=== PATIENT | male | born 1965 | race Caucasian/White ===

== ENCOUNTER 2024-07-28 13:13 | Inpatient (IN) ==
--- NOTE | 2024-07-28 14:03 | Emergency Department Note ---
HPI - URI/Sore Throat General Chief Complaint: Upper Respiratory Infection Stated Complaint: cold Time Seen by Provider: 07/28/24 13:20 Source: patient and family Limitations: no limitations History of Present Illness HPI Narrative: 58-year-old male presents to ER with complaint of generalized bodyaches, fever, cough, shortness of breath, and fatigue x 2 days. MD elicited complaint: Reports fever, cough and nasal congestion Pertinent past history: Reports pneumonia, sinusitis and seasonal allergies Onset (ago): day(s) (2) Consistency: Reports constant Severity: moderate Description of mucous: Reports yellow and green Able to tolerate fluids by mouth: Yes Exacerbating factors: Reports exertion, speaking, changing head position, supine positioning and leaning forward Relieving factors: Reports nothing Context: Reports sick contacts Associated symptoms: Reports fever, chills, myalgias, headache, nasal congestion, cough and nausea Treatments prior to arrival: Reports aspirin Related Data Allergies Allergy/AdvReac Type Severity Reaction Status Date / Time No Known Drug Allergies Allergy Verified 07/28/24 13:23 Review of Systems Status of ROS 10 or more systems reviewed and unremark able except as noted in history and below Constitutional Reports: fever, chills and fatigue; Denies: change in weight, malaise, night sweats or change in sleep pattern Eyes Denies: change in vision, blurry vision, blind spots, light sensitivity, eye discomfort, eye discharge, dry eyes, increased production of tears, floaters, seeing flashes or decreased night vision Ears, nose, mouth, and throat Reports: nasal congestion; Denies: throat pain, neck pain, throat swelling, difficulty swallowing, hoarseness, mouth pain, swelling of lips/tongue, dry mouth, bad breath, ear pain, ear discharge, change in hearing, tinnitus, vertigo, nasal discharge, nose bleeds or post nasal drip Cardiovascular Reports: shortness of breath with exertion and shortness of breath when lying down; Denies: chest pain, palpitations, edema, swelling of feet/ankles, lightheadedness, leg pain with exertion or bluish discoloration of hands/feet Respiratory Reports: shortness of breath, cough, wheezing and change in phlegm color; Denies: stridor, pain on inspiration, coughing up blood or chest congestion Gastrointestinal Reports: nausea; Denies: abdominal pain, vomiting, coffee grounds in vomit, heartburn, diarrhea, constipation, bloating, belching, excessive passing of gas, difficulty swallowing, feeling full early, change in bowel habits, painful bowel movements, rectal pain, rectal swelling, rectal itching, change in stool character, blood in stool, mucus in stool, white/light colored stool or fatty stool Genitourinary Denies: painful urination, urinary frequency, urinary urgency, blood in urine, genital pain, genital lesion, penile discharge, testicular pain, testicular mass, scrotal swelling, difficulty urinating, nighttime urination, change in urine stream, decreased urine ouput, difficulty starting urination, u rinary hesitancy, urinary dribbling, difficulty with ejactulations, painful ejaculations, blood in semen, change in libido or difficulty impregnating Musculoskeletal Reports: other (Generalized body aches); Denies: back pain, neck pain, extremity pain, extremity swelling, joint pain, limited range of motion, joint swelling, muscle cramps, muscle weakness or loss of height Integumentary/Breast Denies: rash, itching, redness, skin pain, skin tenderness, skin swelling, sores, new lesion, changing lesion, non-healing lesion, changes in skin color, jaundice, stretch sierra, acne, nail changes, change in hair, breast pain, breast swelling, nipple discharge, breast mass, breast skin changes or change in breast shape Neurological Denies: headache, numbness in extremities, weakness in extremities, lack of coordination, dizziness, vertigo, confusion, behavioral changes, slurred speech, difficulty communicating thoughts, seizure-like activity or involuntary movements Psychiatric Denies: anxiety, mood swings, panic attacks, change in sleep pattern, hopelessness, loss of interest, irritability, paranoia, memory loss, difficulty concentrating, visual hallucinations, auditory hallucinations, tactile hallucinations, suicidal ideation or homicidal ideation Endocrine Reports: fatigue; Denies: excessive urination, excessive thirst, cold intolerance, excessive sweating, flushing, heat intolerance, deepening of the voice, change in body appearance or change in libido Hematologic/Lymphatic Denies: easy bruising, easy bleeding or enlarged lymph nodes Allergic/Immunologic Reports: wheezing; Denies: hives, throat swelling, tongue swelling, facial swelling, itchy eyes, seasonal allergies or food intolerance [facility] Medical History (Updated 07/28/24 @ 13:32 by Madyson Aburto RN) HTN (hypertension) Social History Smoking status: never smoker Exam Constitutional: normal general appearance, distress noted (moderate), average body habitus, no limitations and alert Vital Signs - 24 hr 07/28/24 13:16 07/28/24 14:00 07/28/24 14:15 Temperature 98.4 F Pulse Rate 115 H 95 H Respiratory Rate 20 Blood Pressure 129/83 132/78 Pulse Oximetry 87 L 91 L 91 L Oxygen Delivery Me thod Room Air Nasal Cannula Oxygen Flow Rate 2 07/28/24 14:30 07/28/24 15:00 Temperature Pulse Rate 88 89 Respiratory Rate Blood Pressure 130/72 126/76 Pulse Oximetry 90 L 91 L Oxygen Delivery Me thod Nasal Cannula Nasal Cannula Oxygen Flow Rate 2 2 HENMT: normocephalic, head/scalp atraumatic, hearing grossly normal bilaterally, external ears normal, EACs normal, nasal mucous membranes normal, external nose normal, oral mucous membranes normal, oropharynx normal, dentition normal and gingiva normal Eyes: PERRL, EOMs intact bilaterally, conjunctivae normal, no scleral icterus, no papilledema, normal visual alfredo by confrontation, alignment normal, periorbital findings normal and no nystagmus Neck/C-Spine: visual inspection normal, trachea midline, cervical spine nontender, cervical full ROM noted, supple, no meningeal signs and thyroid normal Lymph: no lymphadenopathy noted and no lymphedema noted Chest: inspection of chest normal, palpation of chest normal, inspection of b reast(s) abnormal and palpation of breast(s) abnormal Respiratory: breath sounds equal bilaterally, normal respiratory effort, auscultation abnormal (diminished breath sound) (Diminished in lower lobes), wheezing noted (expiratory wheezes), no rales, no retractions and no use of accessory muscles Cardiovascular: normal heart rate noted, regular rhythm noted, no gallop, no rub, no murmur, no JVD, no clicks, peripheral pulses 2+ throughout, no bruits noted and no additional abnormal heart sounds Gastrointestinal: abdomen normal to inspection, abdomen soft to palpation, nontender to palpation, nondistended, normoactive bowel sounds, no hepatosplenomegaly, no masses, no pulsatile mass, no ascites, no hernia and normal rectal exam (deferred) Genitourinary: no CVA tenderness, bladder normal to palpation, penis abnormal (deferred), uncircumcised, testes abnormal, meatus abnormal (deferred), scrotum abnormal (deferred) and inguinal lymphadenopathy noted Back/Pelvis: spine normal to inspection, no thoracic spine tenderness, no lumbar spine tenderness, thoracic spine ROM normal, lumbar spine ROM normal and no paraspinal muscle tenderness noted Extremities: normal to inspection, normal to palpation, no tenderness, full ROM, no joint enlargement and no deformity Generalized body aches and pain on movement and range of motion. 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, no movement abnormality noted, no focal motor deficit noted, no sensory deficits noted, gait normal, speech normal, coordination normal, no pronator drift noted, no fasciculations noted and GCS normal Psychiatry: Mental Status Exam documented within this Exam's Psych section mental status grossly normal, oriented x3, thought process normal, cooperative, affect normal, psychomotor activity normal and memory normal Feel stressed/tense/nervous/anxious/difficulty sleeping: to some extent Life stressor details: Current medical condition Skin: skin color normal, no rash, no lesions, no ecchymosis noted, no wounds, no lacerations, skin turgor normal, no jaundice, no petechiae, no mottling, nails normal and no alopecia Course Course Hospital Course: 58-year-old male who presented to ER with complaint of generalized bodyaches, fever, cough, fatigue, nausea, runny nose has been evaluated by physical exam, CBC, CMP, plain film chest x-ray, swabs for COVID and flu, and magnesium results as noted in charting. Patient has been found to have hypoalbuminemia,-kalemia, leukocytosis, and bilateral pneumonia. Patient will be admitted to the Med/surg floor for IV antibiotics, and replacement of his electrolytes. Patient expected stay equal to or greater than 2 midnights with disposition home. Patient is agreeable treatment plan at this time. Vital Signs Vital signs: Vital Signs Temperature 98.4 F 07/28/24 13:16 Pulse Rate 115 H 07/28/24 13:16 Respiratory Rate 20 07/28/24 13:16 Blood Pressure 129/83 07/28/24 13:16 Pulse Oximetry 87 L 07/28/24 13:16 Oxygen Delivery Method Room Air 07/28/24 13:16 Temperature 98.4 F 07/28/24 13:16 Pulse Rate 89 07/28/24 15:00 Respiratory Rate 20 07/28/24 13:16 Blood Pressure 126/76 07/28/24 15:00 Pulse Oximetry 91 L 07/28/24 15:00 Oxygen Delivery Method Nasal Cannula 07/28/24 15:00 Oxygen Flow Rate 2 07/28/24 15:00 MDM - URI/Sore Throat MDM Narrative Medical Decision Making Narrative: Medical Decision Making this patient involved physical exam, CBC, CMP,/, magnesium, and plain film chest x-ray. Differential Diagnosis Upper Respiratory Differential Diagnosis: upper respiratory infection, viral infection, bronchitis, influenza, pharyngitis and other (Pneumonia) Lab Data Attestation: I reviewed the patient's lab results. Labs: Lab Results 07/28/24 Range/Units 14:10 WBC 15.9 H (3.7-9.6) K/uL RBC 4.9 (4.40-5.80) M/uL Hgb 14.5 (14.0-17.4) gm/dL Hct 43.3 (41.3-50.1) % MCV 88.0 (81.9-96.5) fl MCH 29.5 (27.6-33.7) pg MCHC 33.5 (33.0-35.7) g/dl RDW 14.0 (11.0-14.8) % Plt Count 422 H (142-355) K/uL MPV 7.6 (6.0-10.4) fl Gran % 89.7 H (49.1-73.1) % Lymph % (Auto) 3.7 L (17.6-39.05) % [place] % (Auto) 5.9 (4.5-10.7) % Eos % (Auto) 0.2 (0.0-4.0) % Baso % (Auto) 0.5 (0.0-1.3) Lymph # (Auto) 0.6 L (0.8-2.9) [place] # (Auto) 0.9 H (0.2-0.8) Eos # (Auto) 0.0 (0.0-0.3) Baso # (Auto) 0.1 (0.0-0.1) Absolute Gran (auto) 14.2 H (2.0-6.2) Sodium 137 (136-145) mmol/L Potassium 3.4 L (3.6-5.2) mmol/L Chloride 96.0 L (98-107) mmol/L Carbon Dioxide 29 (21-32) mmol/L Anion Gap 12.0 (4-14) mEq/L BUN 19 H (7-18) mg/dL Creatinine 1.0 (0.6-1.3) mg/dL Estimated GFR 87.2 (>59.9) Glucose 118 H (70-110) mg/dL Calcium 8.9 (8.5-10.1) mg/dL Total Bilirubin 0.81 (0.0-1.0) mg/dL AST 44 H (15-37) U/L ALT 30 (30-65) U/L Alkaline Phosphatase 121 (50-136) U/L Total Protein 7.8 (6.4-8.2) g/dL Albumin 2.2 L (3.4-5.0) g/dL COVID-19 ([facility]PH[facility]) Not detected (Not Detectd) Influenza Type A Ag Negative (Negative) Influenza Type B Ag Negative (Negative) Imaging Data Attestation imaging: I have reviewed the pertinent imaging results. Radiologist Impression: EXAM: XR CHEST 1V HISTORY: COUGHCOUGH; CBN COMPARISON: January 27, 2021 FINDINGS: The trachea is midline. The cardiac silhouette is mildly enlarged. Patchy infiltrate is noted at both lower lung zones more on right side without effusion. The bony thorax is unremarkable. IMPRESSION: Bilateral lower lobe bronchopneumonia. THIS IS AN ELECTRONICALLY VERIFIED FINAL REPORT 07/28/2024 2:22 PM - Electronically signed by Annie Robb MD Discharge Plan Discharge Patient Disposition: Admitted As Inpatient Condition: Stable Clinical Impression: Bronchopneumonia, Upper respiratory infection, Leukocytosis, Hypoalbuminemia, Acute hypokalemia Time of Disposition: 15:00
[2024-07-28] MEDS: IPRATROPIUM/ALBUTEROL SULFATE 3 ML AMPUL.NEB INH ONE (14:14)
[2024-07-28 14:20] LABS: Basophils #(Absolute) Auto 0.1 (0.0-0.1); Basophils%(Percent) Auto 0.5 (0.0-1.3); Eosinophils%(Percent) Auto 0.2 % (0.0-4.0); Granulocytes % - Auto 89.7 % (49.1-73.1); Granulocytes#(Absolute)- Auto 14.2 (2.0-6.2); Hematocrit 43.3 % (41.3-50.1); Monocytes #(Absolute)- Auto 0.9 (0.2-0.8); Monocytes %(Percent)- Auto 5.9 % (4.5-10.7); Platelet Count 422 K/uL (142-355); White Blood Count 15.9 K/uL (3.7-9.6)
[2024-07-28 14:37] LABS: Potassium 3.4 mmol/L (3.6-5.2)
[2024-07-28] MEDS ORDERED: bisacodyL 10 MG SUPP.RECT PR PRN (17:53)
[2024-07-28] MEDS ORDERED: ACETAMINOPHEN 1000 MG/100 ML 1,000 MG/100 ML IV.SOLN IV PRN (17:53)
[2024-07-28] MEDS ORDERED: MORPHINE SULFATE 4 MG/ML CARTRIDGE IV PRN (17:53)
[2024-07-28] MEDS ORDERED: ONDANSETRON HCL/PF 4 MG/2 ML VIAL INJ PRN (17:53)
[2024-07-28] MEDS ORDERED: KETOROLAC 30 MG/ML INJ VIAL IVP PRN (17:53)
[2024-07-28] MEDS ORDERED: AZITHROMYCIN 500 MG VIAL ONE (17:55)
[2024-07-28] MEDS ORDERED: 0.9 % SODIUM CHLORIDE 250 ML IV ONE (17:55)
[2024-07-28] MEDS: AZITHROMYCIN 500 MG 500 MG in 0.9 % SODIUM CHLORIDE 250 ML IV ONE (18:02)
[2024-07-28] MEDS: IPRATROPIUM/ALBUTEROL SULFATE 3 ML AMPUL.NEB INH SCH (20:14)
[2024-07-28] MEDS: CEFTRIAXONE SODIUM 1 GM in 0.9 % SODIUM CHLORIDE MB+ 50 ML IV SCH (21:06)
[2024-07-29 05:14] LABS: Basophils%(Percent) Auto 0.1 (0.0-1.3); Granulocytes#(Absolute)- Auto 13.1 (2.0-6.2); Hematocrit 41.6 % (41.3-50.1); Mean Corpuscular Volume 87.7 fl (81.9-96.5); Monocytes #(Absolute)- Auto 0.2 (0.2-0.8); Monocytes %(Percent)- Auto 1.4 % (4.5-10.7); Platelet Count 423 K/uL (142-355); White Blood Count 13.7 K/uL (3.7-9.6)
[2024-07-29] MEDS: dexAMETHasone 4 MG TABLET PO SCH (06:16)
[2024-07-29] MEDS: ENOXAPARIN SODIUM 40 MG/0.4 ML SYRINGE SUBQ SCH (13:18)
[2024-07-29] MEDS: ALBUMIN HUMAN 25% 100 ML IV SCH (13:18)
[2024-07-29] MEDS: CEFTRIAXONE SODIUM 1 GM in 0.9 % SODIUM CHLORIDE MB+ 50 ML IV SCH (14:51)
[2024-07-29] MEDS: METHYLPREDNISOLONE SOD SUCC/PF 40 MG/ML VIAL INJ SCH (14:51)
--- NOTE | 2024-07-29 15:22 | History & Physical Report ---
H&P: HPI History of Present Illness Chief complaint: broncopneumonia,leukocytosis,hypoalbumenia,hypokal Narrative: 58-year-old male presents to ER with complaint of generalized bodyaches, fever, cough, shortness of breath, and fatigue x 2 days. MD elicited complaint: Reports fever, cough and nasal congestion Pertinent past history: Reports pneumonia, sinusitis and seasonal allergies Review of Systems Status of ROS 10 or more systems reviewed and unremark able except as noted in history and below Constitutional Reports: fever, chills and fatigue; Denies: change in weight, malaise, night sweats or change in sleep pattern Eyes Denies: change in vision, blurry vision, blind spots, light sensitivity, eye discomfort, eye discharge, dry eyes, increased production of tears, floaters, seeing flashes or decreased night vision Ears, nose, mouth, and throat Reports: nasal congestion; Denies: throat pain, neck pain, throat swelling, difficulty swallowing, hoarseness, mouth pain, swelling of lips/tongue, dry mouth, bad breath, ear pain, ear discharge, change in hearing, tinnitus, vertigo, nasal discharge, nose bleeds or post nasal drip Cardiovascular Reports: shortness of breath with exertion and shortness of breath when lying down; Denies: chest pain, palpitations, edema, swelling of feet/ankles, lightheadedness, leg pain with exertion or bluish discoloration of hands/feet Respiratory Reports: shortness of breath, cough, wheezing and change in phlegm color; Denies: stridor, pain on inspiration, coughing up blood or chest congestion Gastrointestinal Reports: nausea; Denies: abdominal pain, vomiting, coffee grounds in vomit, heartburn, diarrhea, constipation, bloating, belching, excessive passing of gas, difficulty swallowing, feeling full early, change in bowel habits, painful bowel movements, rectal pain, rectal swelling, rectal itching, change in stool character, blood in stool, mucus in stool, white/light colored stool or fatty stool Genitourinary Denies: painful urination, urinary frequency, urinary urgency, blood in urine, genital pain, genital lesion, penile discharge, testicular pain, testicular mass, scrotal swelling, difficulty urinating, nighttime urination, change in urine stream, decreased urine ouput, difficulty starting urination, urinary hesitancy, urinary dribbling, difficulty with ejactulations, painful ejaculations, blood in semen, change in libido or difficulty impregnating Musculoskeletal Reports: other (Generalized body aches); Denies: back pain, neck pain, extremity pain, extremity swelling, joint pain, limited range of motion, joint swelling, muscle cramps, muscle weakness or loss of height Integumentary/Breast Denies: rash, itching, redness, skin pain, skin tenderness, skin swelling, sores, new lesion, changing lesion, non-healing lesion, changes in skin color, jaundice, stretch sierra, acne, nail changes, change in hair, breast pain, breast swelling, nipple discharge, breast mass, breast skin changes or change in breast shape Neurological Denies: headache, numbness in extremities, weakness in extremities, lack of coordination, dizziness, vertigo, confusion, behavioral changes, slurred speech, difficulty communicating thoughts, seizure-like activity or involuntary movements Psychiatric Denies: anxiety, mood swings, panic attacks, change in sleep pattern, hopelessness, loss of interest, irritability, paranoia, memory loss, difficulty concentrating, visual hallucinations, auditory hallucinations, tactile hallucinations, suicidal ideation or homicidal ideation Endocrine Reports: fatigue; Denies: excessive urination, excessive thirst, cold intolerance, excessive sweating, flushing, heat intolerance, deepening of the voice, change in body appearance or change in libido Hematologic/Lymphatic Denies: easy bruising, easy bleeding or enlarged lymph nodes Allergic/Immunologic Reports: wheezing; Denies: hives, throat swelling, tongue swelling, facial swelling, itchy eyes, seasonal allergies or food intolerance [facility] Medical History (Updated 07/29/24 @ 15:23 by Danika Hanks DO) GERD (gastroesophageal reflux disease) Hypoalbuminemia Asthma HTN (hypertension) Social History Smoking status: never smoker Problems where you live: no known problems Highest level of school completed/degree received: high school Feel stressed/tense/nervous/anxious/difficulty sleeping: to some extent Life stressor details: Current medical condition Meds Home Medications and Allergies Allergies Allergy/AdvReac Type Severity Reaction Status Date / Time No Known Drug Allergies Allergy Verified 07/28/24 13:23 Exam Constitutional: abnormal general appearance (disheveled), distress noted (moderate), average body habitus, no limitations and alert Vital Signs - 24 hr 07/28/24 15:30 07/28/24 16:00 07/28/24 16:30 Temperature Pulse Rate 87 93 H 88 Pulse Rate [Bilate ral] Respiratory Rate Blood Pressure 122/73 125/75 118/75 Blood Pressure [Ri ght Radial Artery] Pulse Oximetry Oxygen Delivery Me thod Oxygen Flow Rate Fraction of Inspir ed Oxygen 07/28/24 17:30 07/28/24 18:00 07/28/24 18:15 Temperature Pulse Rate 83 85 Pulse Rate [Bilate ral] Respiratory Rate Blood Pressure 125/73 120/70 Blood Pressure [Ri ght Radial Artery] Pulse Oximetry 93 L Oxygen Delivery Me thod Nasal Cannula Oxygen Flow Rate 3 Fraction of Inspir ed Oxygen 07/28/24 18:30 07/28/24 20:00 07/28/24 20:00 Temperature 98.2 F 98.2 F Pulse Rate 85 Pulse Rate [Bilate ral] 83 83 Respiratory Rate 16 19 19 Blood Pressure 120/70 Blood Pressure [Ri ght Radial Artery] 120/75 120/75 Pulse Oximetry 93 L 91 L 91 L Oxygen Delivery Me thod Nasal Cannula Nasal Cannula Oxygen Flow Rate Fraction of Inspir ed Oxygen 07/28/24 20:00 07/28/24 20:14 07/28/24 20:14 Temperature Pulse Rate Pulse Rate [Bilate ral] Respiratory Rate Blood Pressure Blood Pressure [Ri ght Radial Artery] Pulse Oximetry 90 L 90 L Oxygen Delivery Me thod Nasal Cannula Nasal Cannula Oxygen Flow Rate 2 3 Fraction of Inspir ed Oxygen 32 07/28/24 23:50 07/29/24 00:18 07/29/24 04:00 Temperature 98.1 F 97.7 F Pulse Rate Pulse Rate [Bilate ral] 84 81 Respiratory Rate 17 18 Blood Pressure Blood Pressure [Ri ght Radial Artery] 120/75 138/84 Pulse Oximetry 92 L 91 L 90 L Oxygen Delivery Me thod Nasal Cannula Nasal Cannula Oxygen Flow Rate Fraction of Inspir ed Oxygen 07/29/24 04:32 07/29/24 08:00 07/29/24 08:22 Temperature 97.6 F Pulse Rate Pulse Rate [Bilate ral] 85 Respiratory Rate 19 Blood Pressure Blood Pressure [Ri ght Radial Artery] 117/75 Pulse Oximetry 91 L 95 94 L Oxygen Delivery Me thod Room Air Oxygen Flow Rate Fraction of Inspir ed Oxygen 07/29/24 08:22 07/29/24 12:00 Temperature 97.9 F Pulse Rate Pulse Rate [Bilate ral] 100 H Respiratory Rate 20 Blood Pressure Blood Pressure [Ri ght Radial Artery] 124/73 Pulse Oximetry 94 L 92 L Oxygen Delivery Me thod Nasal Cannula Nasal Cannula Oxygen Flow Rate 2 3 Fraction of Inspir ed Oxygen 28 HENMT: normocephalic, head/scalp atraumatic, hearing grossly normal bilaterally, external ears normal, EACs normal, nasal mucous membranes normal, external nose normal, oral mucous membranes abnormal (dry), oropharynx abnormal, dentition normal and gingiva normal Eyes: PERRL, EOMs intact bilaterally, conjunctivae normal, no scleral icterus, papilledema noted, normal visual alfredo by confrontation, alignment normal, periorbital findings normal, visual acuity normal and no nystagmus Neck/C-Spine: visual inspection normal, trachea midline, cervical spine nontender, cervical full ROM noted, supple, no meningeal signs and thyroid normal Lymph: no lymphadenopathy noted and no lymphedema noted Chest: inspection of chest normal, palpation of chest normal, inspection of breast(s) abnormal and palpation of breast(s) abnormal Respiratory: breath sounds equal bilaterally, normal respiratory effort, auscultation abnormal (diminished breath sound) (Diminished in lower lobes), wheezing noted (expiratory wheezes), no rales, no retractions and no use of accessory muscles Cardiovascular: normal heart rate noted, regular rhythm noted, no gallop, no rub, no murmur, no JVD, no clicks, peripheral pulses 2+ throughout, no bruits noted and no additional abnormal heart sounds Gastrointestinal: abdomen normal to inspection, abdomen soft to palpation, nontender to palpation, nontender to percussion, nondistended, normoactive bowel sounds, hepatosplenomegaly noted, no masses, no pulsatile mass, no ascites, no hernia and normal rectal exam (deferred) Genitourinary: no CVA tenderness, bladder normal to palpation, external appearance normal, penis normal (deferred), circumcised, testes normal, meatus normal (deferred), scrotum normal (deferred) and no inguinal lymphadenopathy Back/Pelvis: spine normal to inspection, no thoracic spine tenderness, no lumbar spine tenderness, thoracic spine ROM normal, lumbar spine ROM normal and no paraspinal muscle tenderness noted Extremities: normal to inspection, normal to palpation, no tenderness, full ROM, no joint enlargement and no deformity Generalized body aches and pain on movement and range of motion. 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, no movement abnormality noted, no focal motor deficit noted, no sensory deficits noted, gait normal, speech normal, coordination normal, no pronator drift noted, no fasciculations noted and GCS normal Psychiatry: Mental Status Exam documented within this Exam's Psych section mental status grossly normal, oriented x3, thought process normal, cooperative, affect abnormality noted (depressed) and (flat), psychomotor activity normal and memory normal Feel stressed/tense/nervous/anxious/difficulty sleeping: decl ine to answer Skin: skin color abnormal (dark circles around eyes) Reports (pale), no rash, no lesions, no ecchymosis noted, no wounds, no lacerations, skin turgor abnormal Reports (tenting), no jaundice, no petechiae, no mottling, nails normal and no alopecia Assessment and Plan Assessment and Plan (1) Pneumonia of both lungs: Qualifiers: Lung location: unspecified part of lung Pneumonia type: due to unspecified organism Qualified Code(s): J18.9 - Pneumonia, unspecified organism Code(s): J18.9 - Pneumonia, unspecified organism (2) Asthma: Qualifiers: Asthma complication type: with acute exacerbation Asthma persistence: unspecified Asthma severity: moderate Qualified Code(s): J45.901 - Unspecified asthma with (acute) exacerbation Code(s): J45.909 - Unspecified asthma, uncomplicated (3) Respiratory acidosis: Code(s): E87.29 - Other acidosis (4) Dehydrated hereditary stomatocytosis: Code(s): D58.8 - Other specified hereditary hemolytic anemias (5) Hypokalemia: Code(s): E87.6 - Hypokalemia (6) Hypoalbuminemia: Code(s): E88.09 - Other disorders of plasma-protein metabolism, not elsewhere classified (7) GERD (gastroesophageal reflux disease): Qualifiers: Esophagitis presence: without esophagitis Qualified Code(s): K21.9 - Gastro-esophageal reflux disease without esophagitis Code(s): K21.9 - Gastro-esophageal reflux disease without esophagitis Plan cautious hydration IV and Oral daily weights cardiac and oxygen monitoring continuous duo nebs every4 hours Pulmicort 1 vial every 12 hours Rocephin 1 gram IV every 12 hours Zithromax 500 mg IV every day Solumedrol 40 mg [id number] IV Protonix 40 mg po daily Lovenox SQ 40 mg daily Results Labs Labs: CBC WBC 13.7 K/uL (3.7-9.6) H 07/29/24 04:27 RBC 4.7 M/uL (4.40-5.80) 07/29/24 04:27 Hgb 14.0 gm/dL (14.0-17.4) 07/29/24 04:27 Hct 41.6 % (41.3-50.1) 07/29/24 04:27 MCV 87.7 fl (81.9-96.5) 07/29/24 04:27 MCH 29.4 pg (27.6-33.7) 07/29/24 04:27 MCHC 33.6 g/dl (33.0-35.7) 07/29/24 04:27 RDW 13.9 % (11.0-14.8) 07/29/24 04:27 Plt Count 423 K/uL (142-355) H 07/29/24 04:27 MPV 7.8 fl (6.0-10.4) 07/29/24 04:27 Gran % 96.0 % (49.1-73.1) H 07/29/24 04:27 Lymph % (Auto) 2.5 % (17.6-39.05) L 07/29/24 04:27 [place] % (Auto) 1.4 % (4.5-10.7) L 07/29/24 04:27 Eos % (Auto) 0.0 % (0.0-4.0) 07/29/24 04:27 Baso % (Auto) 0.1 (0.0-1.3) 07/29/24 04:27 Lymph # (Auto) 0.3 (0.8-2.9) L 07/29/24 04:27 [place] # (Auto) 0.2 (0.2-0.8) 07/29/24 04:27 Eos # (Auto) 0.0 (0.0-0.3) 07/29/24 04:27 Baso # (Auto) 0.0 (0.0-0.1) 07/29/24 04:27 Absolute Gran (auto) 13.1 (2.0-6.2) H 07/29/24 04:27 BMP Sodium 136 mmol/L (136-145) 07/29/24 04:27 Potassium 4.0 mmol/L (3.6-5.2) 07/29/24 04:27 Chloride 98.0 mmol/L (98-107) 07/29/24 04:27 Carbon Dioxide 28 mmol/L (21-32) 07/29/24 04:27 Anion Gap 10.0 mEq/L (4-14) 07/29/24 04:27 BUN 20 mg/dL (7-18) H 07/29/24 04:27 Creatinine 0.8 mg/dL (0.6-1.3) 07/29/24 04:27 Estimated GFR 102.6 (>59.9) 07/29/24 04:27 Glucose 158 mg/dL (70-110) H 07/29/24 04:27 Calcium 8.8 mg/dL (8.5-10.1) 07/29/24 04:27 Magnesium 2.1 mg/dL (1.8-2.4) 07/29/24 04:27 Total Bilirubin 0.42 mg/dL (0.0-1.0) 07/29/24 04:27 AST 49 U/L (15-37) H 07/29/24 04:27 ALT 37 U/L (30-65) 07/29/24 04:27 Alkaline Phosphatase 123 U/L (50-136) 07/29/24 04:27 Total Protein 7.6 g/dL (6.4-8.2) 07/29/24 04:27 Albumin 2.0 g/dL (3.4-5.0) L 07/29/24 04:27 Liver Function Total Bilirubin 0.42 mg/dL (0.0-1.0) 07/29/24 04:27 AST 49 U/L (15-37) H 07/29/24 04:27 ALT 37 U/L (30-65) 07/29/24 04:27 Alkaline Phosphatase 123 U/L (50-136) 07/29/24 04:27 Total Protein 7.6 g/dL (6.4-8.2) 07/29/24 04:27 Albumin 2.0 g/dL (3.4-5.0) L 07/29/24 04:27 ABG Attestation: I have reviewed the pertinent ABG results. Pulse Oximetry Attestation: I have reviewed the pertinent pulse oximetry results. ECG Attestation: I have reviewed the pertinent ECG results. Imaging Imaging ordered: Chest x-ray Radiologist's impression: XR CHEST 1V HISTORY: COUGHCOUGH; CBN COMPARISON: January 27, 2021 FINDINGS: The trachea is midline. The cardiac silhouette is mildly enlarged. Patchy infiltrate is noted at both lower lung zones more on right side without effusion. The bony thorax is unremarkable. IMPRESSION: Bilateral lower lobe bronchopneumonia.
[2024-07-29] MEDS: BUDESONIDE 0.5 MG/2 ML AMPUL.NEB INH SCH (15:40)
[2024-07-29] MEDS: 0.9 % SODIUM CHLORIDE 1000 ML 1,000 ML IV SCH (16:18)
[2024-07-29] MEDS: AZITHROMYCIN 500 MG 500 MG in 0.9 % SODIUM CHLORIDE 250 ML IV SCH (17:33)
[2024-07-29] MEDS: PANTOPRAZOLE SODIUM 40 MG TABLET.DR PO SCH (20:57)
[2024-07-30 04:45] LABS: Basophils #(Absolute) Auto 0.1 (0.0-0.1); Basophils%(Percent) Auto 0.3 (0.0-1.3); Granulocytes#(Absolute)- Auto 15.8 (2.0-6.2); Hematocrit 37.5 % (41.3-50.1); Monocytes #(Absolute)- Auto 0.4 (0.2-0.8); Monocytes %(Percent)- Auto 2.2 % (4.5-10.7); Platelet Count 405 K/uL (142-355); White Blood Count 16.8 K/uL (3.7-9.6)
[2024-07-30 05:18] LABS: Potassium 3.3 mmol/L (3.6-5.2)
[2024-07-30] MEDS: POTASSIUM CHLORIDE 20 MEQ TAB.ER.PRT PO ONE (10:05)
[2024-07-30] MEDS: carvediloL 3.125 MG TABLET PO SCH (10:47)
--- NOTE | 2024-07-30 14:34 | Progress Note ---
Progress Note: Subjective Subjective Interval history: Patient is being tapered off O2, when oxygen is lowered his sats drop to 90-92%. He is currently on 2 liters of oxygen to maintain O2 saturation levels. WBC increased to 16.8, glucose of 197, BNP of 148.0, Albumin of 2.7, and TSH of 0.27. Breath sounds have improved and patient states he is feeling better today. Exam Exam: Patient sitting up eating with family member at bedside upon encounter for exam. Constitutional: normal general appearance, no apparent distress, average body habitus, no limitations and alert Vital Signs - 24 hr 07/29/24 12:00 07/29/24 16:00 07/29/24 19:23 Temperature 97.9 F 97.7 F 97.6 F Pulse Rate [Bilate ral] 100 H 91 H 92 H Respiratory Rate 20 20 23 Blood Pressure [Ri ght Radial Artery] 124/73 128/68 123/71 Pulse Oximetry 92 L 87 L 91 L Oxygen Delivery Me thod Nasal Cannula Nasal Cannula Nasal Cannula Oxygen Flow Rate 3 2 Fraction of Inspir ed Oxygen 07/29/24 21:00 07/29/24 21:00 07/29/24 23:45 Temperature 97.8 F Pulse Rate [Bilate ral] 95 H Respiratory Rate 21 Blood Pressure [Ri ght Radial Artery] 134/71 Pulse Oximetry 90 L 90 L 98 Oxygen Delivery Me thod Nasal Cannula Room Air Oxygen Flow Rate 2 Fraction of Inspir ed Oxygen 28 07/30/24 03:20 07/30/24 07:50 07/30/24 07:53 Temperature 98.7 F 97.8 F Pulse Rate [Bilate ral] 81 74 Respiratory Rate 20 20 Blood Pressure [Ri ght Radial Artery] 135/70 137/75 Pulse Oximetry 90 L 88 L 88 L Oxygen Delivery Me thod Nasal Cannula Nasal Cannula Oxygen Flow Rate 2 Fraction of Inspir ed Oxygen HENMT: normocephalic, head/scalp atraumatic, hearing grossly normal bilaterally, external ears normal, EACs normal, nasal mucous membranes normal, external nose normal, oral mucous membranes normal, oropharynx normal, dentition normal and gingiva normal Eyes: PERRL, EOMs intact bilaterally, conjunctivae normal, no scleral icterus, papilledema noted, normal visual alfredo by confrontation, alignment normal, periorbital findings normal, visual acuity normal and no nystagmus Neck/C-Spine: visual inspection normal, trachea midline, cervical spine nontender, cervical full ROM noted, supple, no meningeal signs and thyroid normal Lymph: no lymphadenopathy noted and no lymphedema noted Chest: inspection of chest normal and palpation of chest normal Respiratory: breath sounds equal bilaterally, normal respiratory effort, auscultation abnormal (diminished breath sound) (Diminished in lower lobes), no wheezes, no rales, no retractions and no use of accessory muscles Cardiovascular: normal heart rate noted, regular rhythm noted, no gallop, no rub, no murmur, no JVD, no clicks, peripheral pulses 2+ throughout, no bruits noted and no additional abnormal heart sounds Gastrointestinal: abdomen normal to inspection, abdomen soft to palpation, nontender to palpation, nontender to percussion, nondistended, normoactive bowel sounds, no masses, no pulsatile mass, no ascites and no hernia Genitourinary: no CVA tenderness, bladder normal to palpation and external appearance normal Back/Pelvis: spine normal to inspection, no thoracic spine tenderness, no lumbar spine tenderness, thoracic spine ROM normal, lumbar spine ROM normal and no paraspinal muscle tenderness noted Extremities: normal to inspection, normal to palpation, no tenderness, full ROM, no joint enlargement and no deformity Generalized body aches and pain on movement and range of motion. 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, no movement abnormality noted, no focal motor deficit noted, no sensory deficits noted, gait normal, speech normal, coor dination normal, no pronator drift noted, no fasciculations noted and GCS normal Psychiatry: Mental Status Exam documented within this Exam's Psych section mental status grossly normal, oriented x3, thought process normal, cooperative, affect normal, psychomotor activity normal and memory normal Skin: skin color abnormal (dark circles around eyes), no rash, no lesions, no ecchymosis noted, no wounds, no lacerations, skin turgor normal, no jaundice, no petechiae, no mottling, nails normal and no alopecia Progress Note: Objective Labs Labs: CBC WBC 16.8 K/uL (3.7-9.6) H 07/30/24 04:30 RBC 4.3 M/uL (4.40-5.80) L 07/30/24 04:30 Hgb 12.5 gm/dL (14.0-17.4) L 07/30/24 04:30 Hct 37.5 % (41.3-50.1) L 07/30/24 04:30 MCV 88.0 fl (81.9-96.5) 07/30/24 04:30 MCH 29.3 pg (27.6-33.7) 07/30/24 04:30 MCHC 33.3 g/dl (33.0-35.7) 07/30/24 04:30 RDW 13.8 % (11.0-14.8) 07/30/24 04:30 Plt Count 405 K/uL (142-355) H 07/30/24 04:30 MPV 7.7 fl (6.0-10.4) 07/30/24 04: Gran % 94.0 % (49.1-73.1) H 07/30/24 04:30 Lymph % (Auto) 3.5 % (17.6-39.05) L 07/30/24 04:30 [place] % (Auto) 2.2 % (4.5-10.7) L 07/30/24 04:30 Eos % (Auto) 0.0 % (0.0-4.0) 07/30/24 04:30 Baso % (Auto) 0.3 (0.0-1.3) 07/30/24 04:30 Lymph # (Auto) 0.6 (0.8-2.9) L 07/30/24 04:30 [place] # (Auto) 0.4 (0.2-0.8) 07/30/24 04:30 Eos # (Auto) 0.0 (0.0-0.3) 07/30/24 04:30 Baso # (Auto) 0.1 (0.0-0.1) 07/30/24 04:30 Absolute Gran (auto) 15.8 (2.0-6.2) H 07/30/24 04:30 BMP Sodium 139 mmol/L (136-145) 07/30/24 04:30 Potassium 3.3 mmol/L (3.6-5.2) L 07/30/24 04:30 Chloride 102.0 mmol/L (98-107) 07/30/24 04:30 Carbon Dioxide 27 mmol/L (21-32) 07/30/24 04:30 Anion Gap 10.0 mEq/L (4-14) 07/30/24 04:30 BUN 18 mg/dL (7-18) 07/30/24 04:30 Creatinine 0.9 mg/dL (0.6-1.3) 07/30/24 04:30 Estimated GFR 99.0 (>59.9) 07/30/24 04:30 Glucose 197 mg/dL (70-110) H 07/30/24 04:30 Calcium 8.7 mg/dL (8.5-10.1) 07/30/24 04:30 Phosphorus 2.9 mg/dL (2.5-4.9) 07/30/24 04:30 Magnesium 2.2 mg/dL (1.8-2.4) 07/30/24 04:30 Total Bilirubin 0.38 mg/dL (0.0-1.0) 07/30/24 04:30 AST 31 U/L (15-37) 07/30/24 04:30 ALT 26 U/L (30-65) L 07/30/24 04:30 Alkaline Phosphatase 104 U/L (50-136) 07/30/24 04:30 Total Protein 7.1 g/dL (6.4-8.2) 07/30/24 04:30 Albumin 2.7 g/dL (3.4-5.0) L 07/30/24 04:30 Liver Function Total Bilirubin 0.38 mg/dL (0.0-1.0) 07/30/24 04:30 AST 31 U/L (15-37) 07/30/24 04:30 ALT 26 U/L (30-65) L 07/30/24 04:30 Alkaline Phosphatase 104 U/L (50-136) 07/30/24 04:30 Total Protein 7.1 g/dL (6.4-8.2) 07/30/24 04:30 Albumin 2.7 g/dL (3.4-5.0) L 07/30/24 04:30 Progress Note: A&P Assessment and Plan (1) Pneumonia of both lungs: Qualifiers: Lung location: unspecified part of lung Pneumonia type: due to unspecified organism Qualified Code(s): J18.9 - Pneumonia, unspecified organism (2) Asthma: Qualifiers: Asthma complication type: with acute exacerbation Asthma persistence: unspecified Asthma severity: moderate Qualified Code(s): J45.901 - Unspecified asthma with (acute) exacerbation (3) Respiratory acidosis: (4) Dehydrated hereditary stomatocytosis: (5) Hypokalemia: (6) Hypoalbuminemia: (7) GERD (gastroesophageal reflux disease): Qualifiers: Esophagitis presence: without esophagitis Qualified Code(s): K21.9 - Gastro-esophageal reflux disease without esophagitis Plan tapering down O2 liters to ween off Oxygen. Continue to monitor and treat. Fall Risk Details Cage Fall Scale Risk Level: Low Fall Risk Current Medications: Current Medications Albuterol Sulfate (Ipratropium/Albuterol Sulfate 3 Ml Ampul.Neb) 3 ml INH RQ4 [facility] Last Admin: 07/30/24 07:53 Dose: 3 ml Bisacodyl (Bisacodyl 10 Mg Supp.Rect) 10 mg HI DAILY PRN PRN Reason: Constipation Budesonide (Budesonide 0.5 Mg/2 Ml Ampul.Neb) 1 mg INH RBID [facility] Last Admin: 07/30/24 07:53 Dose: 1 mg Carvedilol (Carvedilol 3.125 Mg Tablet) 3.125 mg PO Q12H [facility] Enoxaparin Sodium (Enoxaparin Sodium 40 Mg/0.4 Ml Syringe) 40 mg SUBQ DAILY [facility] Last Admin: 07/30/24 09:17 Dose: 40 mg Gabapentin (Gabapentin 300 Mg Capsule) 300 mg PO DAILY [facility] Acetaminophen (Acetaminophen 1000 Mg/100 Ml) 1,000 mg in 100 mls @ 400 mls/hr IV Q6H PRN PRN Reason: Pain Azithromycin 500 mg/ Sodium (Chloride) 250 mls @ 250 mls/hr IV Q24H [facility] Stop: 07/31/24 18:59 Last Infusion: 07/29/24 19:53 Dose: Infused Ceftriaxone Sodium 1 gm/ (Sodium Chloride) 50 mls @ 100 mls/hr IV Q12H [facility] Last Infusion: 07/30/24 04:33 Dose: Infused Sodium Chloride (Sodium Chloride) 1,000 mls @ 100 mls/hr IV CONT [facility] Last Admin: 07/30/24 03:48 Dose: 100 mls/hr Ketorolac Tromethamine (Ketorolac 30 Mg/Ml Inj Vial) 15 mg IVP Q6H PRN PRN Reason: Moderate Pain SCALE 5-7 Stop: 08/02/24 17:52 Methylprednisolone Sodium Succinate (Methylprednisolone Sod Succ/Pf 40 Mg/Ml Vial) 40 mg INJ Q8H [facility] Last Admin: 07/30/24 07:40 Dose: 40 mg Morphine Sulfate (Morphine Sulfate 4 Mg/Ml Cartridge) 4 mg IV Q4H PRN PRN Reason: Severe Pain SCALE 8-10 Ondansetron HCl (Ondansetron Hcl/Pf 4 Mg/2 Ml Vial) 4 mg INJ Q6H PRN PRN Reason: Nausea And Vomiting Pantoprazole Sodium (Pantoprazole Sodium 40 Mg Tablet.Dr) 40 mg PO BID [facility] Last Admin: 07/30/24 09:17 Dose: 40 mg Time Spent With Patient Time: Total time spent is greater than 50% in coordination of care (as documented) at patient's floor/unit and/or counseling patient:
[2024-07-30] MEDS: GABAPENTIN 300 MG CAPSULE PO SCH (20:31)
[2024-07-31 04:58] LABS: Basophils%(Percent) Auto 0.1 (0.0-1.3); Granulocytes#(Absolute)- Auto 10.7 (2.0-6.2); Mean Corpuscular Volume 88.9 fl (81.9-96.5); Monocytes #(Absolute)- Auto 0.2 (0.2-0.8); Monocytes %(Percent)- Auto 2.1 % (4.5-10.7); Platelet Count 366 K/uL (142-355); White Blood Count 11.4 K/uL (3.7-9.6)
[2024-07-31 05:29] LABS: Potassium 4.8 mmol/L (3.6-5.2)
[2024-07-31] MEDS: METHYLPREDNISOLONE SOD SUCC/PF 40 MG/ML VIAL INJ SCH (15:40)
--- NOTE | 2024-07-31 16:02 | Progress Note ---
Progress Note: Subjective Subjective Interval history: Patient is being tapered off O2, when oxygen is lowered his sats drop to 90-92%. He is currently on 2 liters of oxygen to maintain O2 saturation levels. WBC increased to 16.8, glucose of 197, BNP of 148.0, Albumin of 2.7, and TSH of 0.27. Breath sounds have improved and patient states he is feeling better today. O2 Qualifier performed by Respiratory Therapy, as soon as patient stood to walk his HR elevated to 120 and O2 SAT went to 84% while on room air. O2 was reapplied at 1 Liter. Exam Exam: Patient in pearson's position upon entering room for exam. Constitutional: normal general appearance, no apparent distress, average body habitus, no limitations and alert Vital Signs - 24 hr 07/30/24 16:00 07/30/24 18:29 07/30/24 19:54 Temperature 97.9 F 97.9 F Pulse Rate Pulse Rate [Bilate ral] 55 L 69 Respiratory Rate 20 20 Blood Pressure Blood Pressure [Ri ght Radial Artery] 145/76 154/82 Pulse Oximetry 92 L 92 L 92 L Oxygen Delivery Me thod Nasal Cannula Nasal Cannula Oxygen Flow Rate 1 1 Fraction of Inspir ed Oxygen 07/30/24 19:54 07/30/24 20:00 07/31/24 00:00 Temperature 97.9 F 97.7 F Pulse Rate Pulse Rate [Bilate ral] 69 68 Respiratory Rate 20 20 Blood Pressure Blood Pressure [Ri ght Radial Artery] 154/82 157/87 Pulse Oximetry 92 L 92 L 91 L Oxygen Delivery Me thod Room Air Nasal Cannula Nasal Cannula Oxygen Flow Rate 1 1 1 Fraction of Inspir ed Oxygen 24 07/31/24 00:26 07/31/24 04:00 07/31/24 05:17 Temperature 97.9 F Pulse Rate Pulse Rate [Bilate ral] 65 Respiratory Rate 19 Blood Pressure Blood Pressure [Ri ght Radial Artery] 146/83 Pulse Oximetry 91 L 94 L 94 L Oxygen Delivery Me thod Nasal Cannula Oxygen Flow Rate 1 Fraction of Inspir ed Oxygen 07/31/24 08:00 07/31/24 08:02 07/31/24 08:03 Temperature 97.9 F Pulse Rate Pulse Rate [Bilate ral] 83 Respiratory Rate 19 Blood Pressure Blood Pressure [Ri ght Radial Artery] 141/71 Pulse Oximetry 90 L 91 L 91 L Oxygen Delivery Me thod Nasal Cannula Nasal Cannula Oxygen Flow Rate 2 2 Fraction of Inspir ed Oxygen 28 07/31/24 09:00 07/31/24 09:00 07/31/24 10:36 Temperature Pulse Rate 88 83 Pulse Rate [Bilate ral] Respiratory Rate Blood Pressure 141/71 Blood Pressure [Ri ght Radial Artery] Pulse Oximetry 93 L Oxygen Delivery Me thod Room Air Oxygen Flow Rate 1.5 Fraction of Inspir ed Oxygen 21 28 07/31/24 11:39 07/31/24 11:45 07/31/24 15:22 Temperature 98.3 F Pulse Rate Pulse Rate [Bilate ral] 78 Respiratory Rate 18 Blood Pressure Blood Pressure [Ri ght Radial Artery] 118/66 Pulse Oximetry 91 L 90 L 94 L Oxygen Delivery Me thod Nasal Cannula Oxygen Flow Rate 2 Fraction of Inspir ed Oxygen HENMT: normocephalic, head/scalp atraumatic, hearing grossly normal bilaterally, external ears normal, EACs normal, nasal mucous membranes normal, external nose normal, oral mucous membranes normal, oropharynx normal, dentition normal and gingiva normal Eyes: PERRL, EOMs intact bilaterally, conjunctivae normal, no scleral icterus, papilledema noted, normal visual alfredo by confrontation, alignment normal, periorbital findings normal, visual acuity normal and no nystagmus Neck/C-Spine: visual inspection normal, trachea midline, cervical spine nontender, cervical full ROM noted, supple, no meningeal signs and thyroid normal Lymph: no lymphadenopathy noted and no lymphedema noted Chest: inspection of chest normal, palpation of chest normal, inspection of breast(s) abnormal and palpation of breast(s) abnormal Respiratory: breath sounds equal bilaterally, normal respiratory effort, auscultation abnormal (diminished breath sound) (Diminished in lower lobes), wheezing noted (scattered wheezes) (Rt > Lt), no rales, no retractions and no use of accessory muscles Cardiovascular: normal heart rate noted, regular rhythm noted, no gallop, no rub, no murmur, no JVD, no clicks, peripheral pulses 2+ throughout, no bruits noted and no additional abnormal heart sounds Gastrointestinal: abdomen normal to inspection, abdomen soft to palpation, nontender to palpation, nontender to percussion, nondistended, normoactive bowel sounds and hepatosplenomegaly noted Genitourinary: no CVA tenderness and bladder normal to palpation Back/Pelvis: spine normal to inspection, no thoracic spine tenderness, no lumbar spine tenderness, thoracic spine ROM normal, lumbar spine ROM normal and no paraspinal muscle tenderness noted Extremities: normal to inspection, normal to palpation, no tenderness, full ROM, no joint enlargement and no deformity Generalized body aches and pain on movement and range of motion. 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, no movement abnormality noted, no focal motor deficit noted, no sensory deficits noted, gait normal, speech normal, coordination normal, no pronator drift noted, no fasciculations noted and GCS normal Psychiatry: Mental Status Exam documented within this Exam's Psych section mental status grossly normal, oriented x3, thought process normal, cooperative, affect normal, psychomotor activity normal and memory normal Skin: skin color normal, no rash, no lesions, no ecchymosis noted, no wounds, no lacerations, skin turgor normal, no jaundice, no petechiae, no mottling, nails normal and no alopecia Progress Note: Objective Labs Labs: CBC WBC 11.4 K/uL (3.7-9.6) H 07/31/24 04:45 RBC 4.4 M/uL (4.40-5.80) 07/31/24 04:45 Hgb 12.7 gm/dL (14.0-17.4) L 07/31/24 04:45 Hct 39.0 % (41.3-50.1) L 07/31/24 04:45 MCV 88.9 fl (81.9-96.5) 07/31/24 04:45 MCH 29.0 pg (27.6-33.7) 07/31/24 04:45 MCHC 32.6 g/dl (33.0-35.7) L 07/31/24 04:45 RDW 14.0 % (11.0-14.8) 07/31/24 04:45 Plt Count 366 K/uL (142-355) H 07/31/24 04:45 MPV 7.5 fl (6.0-10.4) 07/31/24 04:45 Gran % 94.0 % (49.1-73.1) H 07/31/24 04:45 Lymph % (Auto) 3.8 % (17.6-39.05) L 07/31/24 04:45 [place] % (Auto) 2.1 % (4.5-10.7) L 07/31/24 04:45 Eos % (Auto) 0.0 % (0.0-4.0) 07/31/24 04:45 Baso % (Auto) 0.1 (0.0-1.3) 07/31/24 04:45 Lymph # (Auto) 0.4 (0.8-2.9) L 07/31/24 04:45 [place] # (Auto) 0.2 (0.2-0.8) 07/31/24 04:45 Eos # (Auto) 0.0 (0.0-0.3) 07/31/24 04:45 Baso # (Auto) 0.0 (0.0-0.1) 07/31/24 04:45 Absolute Gran (auto) 10.7 (2.0-6.2) H 07/31/24 04:45 BMP Sodium 138 mmol/L (136-145) 07/31/24 04:45 Potassium 4.8 mmol/L (3.6-5.2) 07/31/24 04:45 Chloride 105.0 mmol/L (98-107) 07/31/24 04:45 Carbon Dioxide 28 mmol/L (21-32) 07/31/24 04:45 Anion Gap 5.0 mEq/L (4-14) 07/31/24 04:45 BUN 19 mg/dL (7-18) H 07/31/24 04:45 Creatinine 0.9 mg/dL (0.6-1.3) 07/31/24 04:45 Estimated GFR 99.0 (>59.9) 07/31/24 04:45 Glucose 144 mg/dL (70-110) H 07/31/24 04:45 Calcium 8.7 mg/dL (8.5-10.1) 07/31/24 04:45 Phosphorus 3.0 mg/dL (2.5-4.9) 07/31/24 04:45 Magnesium 2.0 mg/dL (1.8-2.4) 07/31/24 04:45 Total Bilirubin 0.42 mg/dL (0.0-1.0) 07/31/24 04:45 AST 26 U/L (15-37) 07/31/24 04:45 ALT 33 U/L (30-65) 07/31/24 04:45 Alkaline Phosphatase 98 U/L (50-136) 07/31/24 04:45 Total Protein 6.5 g/dL (6.4-8.2) 07/31/24 04:45 Albumin 2.4 g/dL (3.4-5.0) L 07/31/24 04:45 Liver Function Total Bilirubin 0.42 mg/dL (0.0-1.0) 07/31/24 04:45 AST 26 U/L (15-37) 07/31/24 04:45 ALT 33 U/L (30-65) 07/31/24 04:45 Alkaline Phosphatase 98 U/L (50-136) 07/31/24 04:45 Total Protein 6.5 g/dL (6.4-8.2) 07/31/24 04:45 Albumin 2.4 g/dL (3.4-5.0) L 07/31/24 04:45 Imaging Chest x-ray: Radiologist's impression: Portable chest Date of Service: 07/30/24 HISTORY: Follow-up pneumonia COMPARISON: 07/28/2024 FINDINGS: Heart is enlarged. No congestive heart failure is noted. Right perihilar, right lower lobe, and left lower lobe infiltrates are present and unchanged and most consistent with pneumonia. Left upper lung field is clear. No pleural effusion or pneumothorax. Bony thorax is unremarkable. IMPRESSION: No significant change from the prior examination. Progress Note: A&P Assessment and Plan (1) Pneumonia of both lungs: Qualifiers: Pneumonia type: due to unspecified organism Lung location: unspecified part of lung Qualified Code(s): J18.9 - Pneumonia, unspecified organism (2) Asthma: Qualifiers: Asthma severity: moderate Asthma persistence: unspecified Asthma complication type: with acute exacerbation Qualified Code(s): J45.901 - Unspecified asthma with (acute) exacerbation (3) Respiratory acidosis: (4) Dehydrated hereditary stomatocytosis: (5) Hypokalemia: (6) Hypoalbuminemia: (7) GERD (gastroesophageal reflux disease): Qualifiers: Esophagitis presence: without esophagitis Qualified Code(s): K21.9 - Gastro-esophageal reflux disease without esophagitis Plan Unable to ween O2. Patient on 1 Liter O2 - Sating at 88-90% Continue to monitor and treat. Fall Risk Details Cage Fall Scale Risk Level: Moderate Fall Risk Current Medications: Current Medications Albuterol Sulfate (Ipratropium/Albuterol Sulfate 3 Ml Ampul.Neb) 3 ml INH RQ4 [facility] Last Admin: 07/31/24 15:22 Dose: 3 ml Bisacodyl (Bisacodyl 10 Mg Supp.Rect) 10 mg [place] DAILY PRN PRN Reason: Constipation Budesonide (Budesonide 0.5 Mg/2 Ml Ampul.Neb) 1 mg INH RBID [facility] Last Admin: 07/31/24 07:45 Dose: 1 mg Carvedilol (Carvedilol 3.125 Mg Tablet) 3.125 mg PO Q12H [facility] Last Admin: 07/31/24 10:36 Dose: 3.125 mg Enoxaparin Sodium (Enoxaparin Sodium 40 Mg/0.4 Ml Syringe) 40 mg SUBQ DAILY [facility] Last Admin: 07/31/24 09:41 Dose: 40 mg Gabapentin (Gabapentin 300 Mg Capsule) 300 mg PO BEDTIME [facility] Last Admin: 07/30/24 20:31 Dose: 300 mg Acetaminophen (Acetaminophen 1000 Mg/100 Ml) 1,000 mg in 100 mls @ 400 mls/hr IV Q6H PRN PRN Reason: Pain Azithromycin 500 mg/ Sodium (Chloride) 250 mls @ 250 mls/hr IV Q24H [facility] Stop: 07/31/24 18:59 Last Infusion: 07/30/24 18:35 Dose: Infused Ceftriaxone Sodium 1 gm/ (Sodium Chloride) 50 mls @ 100 mls/hr IV Q12H [facility] Last Infusion: 07/31/24 15:03 Dose: Infused Sodium Chloride (Sodium Chloride) 1,000 mls @ 100 mls/hr IV CONT [facility] Last Admin: 07/31/24 15:12 Dose: Not Given Ketorolac Tromethamine (Ketorolac 30 Mg/Ml Inj Vial) 15 mg IVP Q6H PRN PRN Reason: Moderate Pain SCALE 5-7 Stop: 08/02/24 17:52 Methylprednisolone Sodium Succinate (Methylprednisolone Sod Succ/Pf 40 Mg/Ml Vial) 80 mg INJ Q8H [facility] Last Admin: 01/03/25 15:40 Dose: 80 mg Morphine Sulfate (Morphine Sulfate 4 Mg/Ml Cartridge) 4 mg IV Q4H PRN PRN Reason: Severe Pain SCALE 8-10 Ondansetron HCl (Ondansetron Hcl/Pf 4 Mg/2 Ml Vial) 4 mg INJ Q6H PRN PRN Reason: Nausea And Vomiting Pantoprazole Sodium (Pantoprazole Sodium 40 Mg Tablet.Dr) 40 mg PO BID [facility]IA[facility] Last Admin: 07/31/24 09:41 Dose: 40 mg Time Spent With Patient Time: Total time spent is greater than 50% in coordination of care (as documented) at patient's floor/unit and/or counseling patient:
[2024-08-01 04:50] LABS: Basophils%(Percent) Auto 0.1 (0.0-1.3); Granulocytes % - Auto 93.5 % (49.1-73.1); Granulocytes#(Absolute)- Auto 11.8 (2.0-6.2); Hematocrit 40.5 % (41.3-50.1); Mean Corpuscular Volume 89.5 fl (81.9-96.5); Monocytes #(Absolute)- Auto 0.3 (0.2-0.8); Monocytes %(Percent)- Auto 2.4 % (4.5-10.7); Platelet Count 371 K/uL (142-355); White Blood Count 12.6 K/uL (3.7-9.6)
[2024-08-01 05:19] LABS: Potassium 4.7 mmol/L (3.6-5.2)
[2024-08-01] MEDS: POTASSIUM PHOSPHATE 500 MG TABLET.SOL PO ONE (14:32)
[2024-08-01] MEDS: ALBUMIN HUMAN 25% 100 ML IV SCH (14:32)
--- NOTE | 2024-08-01 15:20 | Progress Note ---
Progress Note: Subjective Subjective Interval history: Patient is being tapered off O2 without success. sats down to low to mid 80's without oxygen and no fevers or tachycardia recorded over night and patient states he is feeling better today as he states everyday and is smiling at the time of the exam O2 Qualifier performed by Respiratory Therapy yesterday, as soon as patient stood to walk his HR elevated to 120 and O2 SAT went to 84% while on room air. O2 was reapplied at 1 Liter. Exam Exam: Patient in pearson's position upon entering room for exam. Constitutional: abnormal general appearance (disheveled) and (chronically ill), distress noted (mild) and (respiratory), average body habitus, limitations noted (physical limitations) and alert Vital Signs - 24 hr 07/31/24 15:22 07/31/24 15:50 07/31/24 19:35 Temperature 98.3 F 98.5 F Pulse Rate Pulse Rate [Bilate ral] 75 80 Respiratory Rate 18 19 Blood Pressure [Ri [facility] Radial Artery] 136/73 122/72 Pulse Oximetry 94 L 90 L 93 L Oxygen Delivery Me thod Nasal Cannula Nasal Cannula Oxygen Flow Rate 2 07/31/24 21:12 07/31/24 21:12 07/31/24 22:09 Temperature Pulse Rate 80 Pulse Rate [Bilate ral] Respiratory Rate Blood Pressure [Ri [facility] Radial Artery] Pulse Oximetry 91 L 91 L Oxygen Delivery Me thod Nasal Cannula Oxygen Flow Rate 2 07/31/24 23:31 08/01/24 03:34 08/01/24 07:31 Temperature 98.5 F 97.9 F Pulse Rate Pulse Rate [Bilate ral] 68 69 Respiratory Rate 21 22 Blood Pressure [Ri [facility] Radial Artery] 142/75 144/77 Pulse Oximetry 91 L 91 L 92 L Oxygen Delivery Me thod Nasal Cannula Nasal Cannula Oxygen Flow Rate 08/01/24 07:31 08/01/24 08:00 08/01/24 11:16 Temperature 98.1 F Pulse Rate Pulse Rate [Bilate ral] 71 Respiratory Rate 18 Blood Pressure [Ri [facility] Radial Artery] 139/77 Pulse Oximetry 92 L 91 L 90 L Oxygen Delivery Me thod Nasal Cannula Nasal Cannula Oxygen Flow Rate 2 2 08/01/24 11:43 08/01/24 12:00 Temperature 97.9 F Pulse Rate 91 H Pulse Rate [Bilate ral] 76 Respiratory Rate 18 Blood Pressure [Ri ght Radial Artery] 136/77 Pulse Oximetry 91 L Oxygen Delivery Me thod Nasal Cannula Oxygen Flow Rate 2 HENMT: normocephalic, head/scalp atraumatic, hearing grossly normal bilaterally, external ears normal, EACs normal, TMs abnormal, nasal mucous membranes normal, external nose normal, oral mucous membranes normal, oropharynx normal, dentition abnormal and gingiva normal Eyes: PERRL, EOMs intact bilaterally, conjunctivae normal, no scleral icterus, papilledema noted, normal visual alfredo by confrontation, alignment normal, periorbital findings normal, visual acuity normal and no nystagmus Neck/C-Spine: visual inspection normal, trachea midline, cervical spine nontender, cervical full ROM noted, supple, no meningeal signs and thyroid normal Lymph: no lymphadenopathy noted and no lymphedema noted Chest: inspection of chest normal, palpation of chest normal and inspection of breasts normal Respiratory: breath sounds equal bilaterally, normal respiratory effort, auscultation abnormal (diminished breath sound) (Diminished in lower lobes), wheezing noted (rhonchi through out today) (scattered wheezes) (Rt > Lt), no rales, no retractions and no use of accessory muscles Cardiovascular: normal heart rate noted, regular rhythm noted, no gallop, no rub, no murmur, no JVD, no clicks, peripheral pulses 2+ throughout, no bruits noted and no additional abnormal heart sounds Gastrointestinal: abdomen normal to inspection, abdomen soft to palpation, nontender to palpation, nontender to percussion, nondistended, normoactive bowel sounds, hepatosplenomegaly noted, no masses, no pulsatile mass, no ascites, no hernia and normal rectal exam (deferred) Genitourinary: no CVA tenderness, bladder normal to palpation, external appearance normal, penis normal (deferred), circumcised, testes normal, meatus normal (deferred), scrotum normal (deferred) and no inguinal lymphadenopathy Back/Pelvis: spine normal to inspection, no thoracic spine tenderness, no lumbar spine tenderness, thoracic spine ROM normal, lumbar spine ROM normal and no paraspinal muscle tenderness noted Extremities: normal to inspection, normal to palpation, no tenderness, full ROM, no joint enlargement and no deformity Generalized body aches and pain on movement and range of motion. 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, no movement abnormality noted, no focal motor deficit noted, no sensory deficits noted, gait normal, speech normal, coordination normal, no pronator drift noted, no fasciculations noted and GCS normal Psychiatry: Mental Status Exam documented within this Exam's Psych section mental status grossly normal, oriented x3, thought process normal, cooperative, affect normal, psychomotor activity normal and memory normal Skin: skin color abnormal Reports (pale), no rash, no lesions, no ecchymosis noted, no wounds, no lacerations, skin turgor normal, no jaundice, no petechiae, no mottling, nails abnormality noted and no alopecia Progress Note: Objective Labs Labs: CBC WBC 12.6 K/uL (3.7-9.6) H 08/01/24 04:40 RBC 4.5 M/uL (4.40-5.80) 08/01/24 04:40 Hgb 13.2 gm/dL (14.0-17.4) L 08/01/24 04:40 Hct 40.5 % (41.3-50.1) L 08/01/24 04:40 MCV 89.5 fl (81.9-96.5) 08/01/24 04:40 MCH 29.2 pg (27.6-33.7) 08/01/24 04:40 MCHC 32.7 g/dl (33.0-35.7) L 08/01/24 04:40 RDW 13.6 % (11.0-14.8) 08/01/24 04:40 Plt Count 371 K/uL (142-355) H 08/01/24 04:40 MPV 7.4 fl (6.0-10.4) 08/01/24 04:40 Gran % 93.5 % (49.1-73.1) H 08/01/24 04:40 Lymph % (Auto) 4.0 % (17.6-39.05) L 08/01/24 04:40 [place] % (Auto) 2.4 % (4.5-10.7) L 08/01/24 04:40 Eos % (Auto) 0.0 % (0.0-4.0) 08/01/24 04:40 Baso % (Auto) 0.1 (0.0-1.3) 08/01/24 04:40 Lymph # (Auto) 0.5 (0.8-2.9) L 08/01/24 04:40 [place] # (Auto) 0.3 (0.2-0.8) 08/01/24 04:40 Eos # (Auto) 0.0 (0.0-0.3) 08/01/24 04:40 Baso # (Auto) 0.0 (0.0-0.1) 08/01/24 04:40 Absolute Gran (auto) 11.8 (2.0-6.2) H 08/01/24 04:40 BMP Sodium 141 mmol/L (136-145) 08/01/24 04:40 Potassium 4.7 mmol/L (3.6-5.2) 08/01/24 04:40 Chloride 107.0 mmol/L (98-107) 08/01/24 04:40 Carbon Dioxide 28 mmol/L (21-32) 08/01/24 04:40 Anion Gap 6.0 mEq/L (4-14) 08/01/24 04:40 BUN 19 mg/dL (7-18) H 08/01/24 04:40 Creatinine 0.9 mg/dL (0.6-1.3) 08/01/24 04:40 Estimated GFR 99.0 (>59.9) 08/01/24 04:40 Glucose 163 mg/dL (70-110) H 08/01/24 04:40 Calcium 8.7 mg/dL (8.5-10.1) 08/01/24 04:40 Phosphorus 2.3 mg/dL (2.5-4.9) L 08/01/24 04:40 Magnesium 2.0 mg/dL (1.8-2.4) 08/01/24 04:40 Total Bilirubin 0.32 mg/dL (0.0-1.0) 08/01/24 04:40 AST 23 U/L (15-37) 08/01/24 04:40 ALT 37 U/L (30-65) 08/01/24 04:40 Alkaline Phosphatase 97 U/L (50-136) 08/01/24 04:40 Total Protein 6.3 g/dL (6.4-8.2) L 08/01/24 04:40 Albumin 2.4 g/dL (3.4-5.0) L 08/01/24 04:40 Liver Function Total Bilirubin 0.32 mg/dL (0.0-1.0) 08/01/24 04:40 AST 23 U/L (15-37) 08/01/24 04:40 ALT 37 U/L (30-65) 08/01/24 04:40 Alkaline Phosphatase 97 U/L (50-136) 08/01/24 04:40 Total Protein 6.3 g/dL (6.4-8.2) L 08/01/24 04:40 Albumin 2.4 g/dL (3.4-5.0) L 08/01/24 04:40 Pulse Oximetry Attestation: I have reviewed the pertinent pulse oximetry results. ECG Attestation: I have reviewed the pertinent ECG results. Imaging Chest x-ray: Attestation: I personally reviewed and interpreted this imaging study as follows: My impression: right lower lobe seems more consolidated on xray and little change to the left infiltrates Radiologist's impression: pending Progress Note: A&P Assessment and Plan (1) Pneumonia of both lungs: Qualifiers: Lung location: unspecified part of lung Pneumonia type: due to unspecified organism Qualified Code(s): J18.9 - Pneumonia, unspecified organism (2) Asthma: Qualifiers: Asthma complication type: with acute exacerbation Asthma persistence: unspecified Asthma severity: moderate Qualified Code(s): J45.901 - Unspecified asthma with (acute) exacerbation (3) Respiratory acidosis: (4) Dehydrated hereditary stomatocytosis: (5) Hypokalemia: (6) Hypoalbuminemia: (7) GERD (gastroesophageal reflux disease): Qualifiers: Esophagitis presence: without esophagitis Qualified Code(s): K21.9 - Gastro-esophageal reflux disease without esophagitis Plan Unable to ween O2. will continue to work on the weaning Patient on 1 Liter O2 - Sating at 88-90% Continue to monitor and treat. EKG repeat in the am await radiology read on the chest xray today repeat ABG in the am if patient not improved continue current respiratory care encourage ambulation and movement of patient in the room and a portable oxygen tank and allow patient to roam the halls BNPpetide in the am since on fluids with leukocytosis and valerie pneumonia for so many days consider changing the antibiotic regimen for the patient Fall Risk Details Cage Fall Scale Risk Level: Moderate Fall Risk Current Medications: Current Medications Albuterol Sulfate (Ipratropium/Albuterol Sulfate 3 Ml Ampul.Neb) 3 ml INH RQ4 [facility] Last Admin: 08/01/24 11:16 Dose: 3 ml Bisacodyl (Bisacodyl 10 Mg Supp.Rect) 10 mg [place] DAILY PRN PRN Reason: Constipation Budesonide (Budesonide 0.5 Mg/2 Ml Ampul.Neb) 1 mg INH RBID [facility] Last Admin: 08/01/24 07:31 Dose: 1 mg Carvedilol (Carvedilol 3.125 Mg Tablet) 3.125 mg PO Q12H [facility] Last Admin: 08/01/24 11:43 Dose: 3.125 mg Enoxaparin Sodium (Enoxaparin Sodium 40 Mg/0.4 Ml Syringe) 40 mg SUBQ DAILY [facility] Last Admin: 08/01/24 08:43 Dose: 40 mg Gabapentin (Gabapentin 300 Mg Capsule) 300 mg PO BEDTIME [facility] Last Admin: 07/31/24 20:04 Dose: 300 mg Acetaminophen (Acetaminophen 1000 Mg/100 Ml) 1,000 mg in 100 mls @ 400 mls/hr IV Q6H PRN PRN Reason: Pain Ceftriaxone Sodium 1 gm/ (Sodium Chloride) 50 mls @ 100 mls/hr IV Q12H [facility] Last Infusion: 08/01/24 15:01 Dose: Infused Sodium Chloride (Sodium Chloride) 1,000 mls @ 100 mls/hr IV CONT [facility] Last Admin: 08/01/24 13:00 Dose: 100 mls/hr Albumin Human (Albumin Human 25%) 100 mls @ 60 mls/hr IV ONCE [facility] Last Admin: 08/01/24 14:32 Dose: 60 mls/hr Ketorolac Tromethamine (Ketorolac 30 Mg/Ml Inj Vial) 15 mg IVP Q6H PRN PRN Reason: Moderate Pain SCALE 5-7 Stop: 08/02/24 17:52 Methylprednisolone Sodium Succinate (Methylprednisolone Sod Succ/Pf 40 Mg/Ml Vial) 80 mg INJ Q8H [facility] Last Admin: 08/01/24 08:44 Dose: 80 mg Morphine Sulfate (Morphine Sulfate 4 Mg/Ml Cartridge) 4 mg IV Q4H PRN PRN Reason: Severe Pain SCALE 8-10 Ondansetron HCl (Ondansetron Hcl/Pf 4 Mg/2 Ml Vial) 4 mg INJ Q6H PRN PRN Reason: Nausea And Vomiting Pantoprazole Sodium (Pantoprazole Sodium 40 Mg Tablet.Dr) 40 mg PO BID [facility] Last Admin: 08/01/24 08:43 Dose: 40 mg Time Spent With Patient Time: Total time spent is greater than 50% in coordination of care (as documented) at patient's floor/unit and/or counseling patient: Time with patient: greater than 35 minutes
[2024-08-01] MEDS: FUROSEMIDE 20 MG/2 ML VIAL IV ONE (15:58)
[2024-08-02 05:59] LABS: Basophils%(Percent) Auto 0.1 (0.0-1.3); Granulocytes % - Auto 93.2 % (49.1-73.1); Granulocytes#(Absolute)- Auto 12.7 (2.0-6.2); Hematocrit 39.9 % (41.3-50.1); Mean Corpuscular Volume 88.4 fl (81.9-96.5); Monocytes #(Absolute)- Auto 0.3 (0.2-0.8); Monocytes %(Percent)- Auto 2.2 % (4.5-10.7); Platelet Count 384 K/uL (142-355); White Blood Count 13.6 K/uL (3.7-9.6)
[2024-08-02 06:15] LABS: Potassium 4.4 mmol/L (3.6-5.2)
--- NOTE | 2024-08-02 11:52 | Progress Note ---
Progress Note: Subjective Subjective Interval history: Patient is being tapered off O2, without much success patient only down to 2 over night from 3 liters. patient continues to state as he does daily that he feels better and he is sitting up in the recliner today and finally out of the bed. remained afebrile and no tachy cardia. O2 Qualifier performed by Respiratory Therapy on 07/31/2023, as soon as patient stood to walk his HR elevated to 120 and O2 SAT went to 84% while on room air. O2 was reapplied at 1 Liter. Exam Exam: Patient in pearson's position upon entering room for exam. Constitutional: abnormal general appearance (disheveled) and (chronically ill), distress noted (mild) and (respiratory), average body habitus, limitations noted (physical limitations) and alert Vital Signs - 24 hr 08/01/24 12:00 08/01/24 15:00 08/01/24 15:44 Temperature 97.9 F 97.8 F Pulse Rate Pulse Rate [Bilate ral] 76 72 Respiratory Rate 18 18 Blood Pressure Blood Pressure [Ri ght Radial Artery] 136/77 146/75 Pulse Oximetry 91 L 92 L 91 L Oxygen Delivery Me thod Nasal Cannula Nasal Cannula Oxygen Flow Rate 2 2 Fraction of Inspir ed Oxygen 08/01/24 17:00 08/01/24 20:00 08/01/24 20:53 Temperature 97.8 F Pulse Rate Pulse Rate [Bilate ral] 76 Respiratory Rate 18 Blood Pressure 136/73 Blood Pressure [Ri ght Radial Artery] 140/79 Pulse Oximetry 94 L 91 L Oxygen Delivery Me thod Nasal Cannula Oxygen Flow Rate 2 Fraction of Inspir ed Oxygen 08/01/24 20:53 08/01/24 23:18 08/02/24 00:00 Temperature 98.2 F Pulse Rate 71 Pulse Rate [Bilate ral] 94 H Respiratory Rate 20 Blood Pressure Blood Pressure [Ri ght Radial Artery] 136/78 Pulse Oximetry 91 L 92 L Oxygen Delivery Me thod Nasal Cannula Nasal Cannula Oxygen Flow Rate 1 2 Fraction of Inspir ed Oxygen 24 08/02/24 04:00 08/02/24 07:38 08/02/24 07:38 Temperature 97.7 F Pulse Rate Pulse Rate [Bilate ral] 91 H Respiratory Rate 18 Blood Pressure Blood Pressure [Ri ght Radial Artery] 111/81 Pulse Oximetry 93 L 93 L Oxygen Delivery Me thod Nasal Cannula Oxygen Flow Rate 2 Fraction of Inspir ed Oxygen 28 08/02/24 08:00 08/02/24 11:33 08/02/24 11:35 Temperature 97.8 F Pulse Rate 70 Pulse Rate [Bilate ral] 76 Respiratory Rate 18 Blood Pressure Blood Pressure [Ri ght Radial Artery] 133/83 Pulse Oximetry 94 L 91 L Oxygen Delivery Me thod Aerosol Mask Oxygen Flow Rate Fraction of Inspir ed Oxygen HENMT: normocephalic, head/scalp atraumatic, hearing grossly normal bilaterally, external ears normal, EACs normal, TMs abnormal, nasal mucous membranes normal, external nose normal, oral mucous membranes normal, oropharynx normal, dentition abnormal and gingiva normal Eyes: PERRL, EOMs intact bilaterally, conjunctivae normal, no scleral icterus, papilledema noted, normal visual alfredo by confrontation, alignment normal, periorbital findings normal, visual acuity normal and no nystagmus Neck/C-Spine: visual inspection normal, trachea midline, cervical spine nontender, cervical full ROM noted, supple, no meningeal signs and thyroid n ormal Lymph: no lymphadenopathy noted and no lymphedema noted Chest: inspection of chest normal, palpation of chest normal and inspection of breasts normal Respiratory: breath sounds equal bilaterally, normal respiratory effort, auscultation abnormal (diminished breath sound) (Diminished in lower lobes), wheezing noted (rhonchi through out today) (scattered wheezes) (Rt > Lt), no rales, no retractions and no use of accessory muscles Cardiovascular: normal heart rate noted, regular rhythm noted, no gallop, no rub, no murmur, no JVD, no clicks, peripheral pulses 2+ throughout, no bruits noted and no additional abnormal heart sounds Gastrointestinal: abdomen normal to inspection, abdomen soft to palpation, nontender to palpation, nontender to percussion, nondistended, normoactive bowel sounds, hepatosplenomegaly noted, no masses, no pulsatile mass, no ascites, no hernia and normal rectal exam (deferred) Genitourinary: no CVA tenderness, bladder normal to palpation, external appearance normal, penis normal (deferred), circumcised, testes normal, meatus normal (deferred), scrotum normal (deferred) and no inguinal lymphadenopathy Back/Pelvis: spine normal to inspection, no thoracic spine tenderness, no lumbar spine tenderness, thoracic spine ROM normal, lumbar spine ROM normal and no paraspinal muscle tenderness noted Extremities: normal to inspection, normal to palpation, no tenderness, full ROM, no joint enlargement and no deformity Generalized body aches and pain on movement and range of motion. 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, no movement abnormality noted, no focal motor deficit noted, no sensory deficits noted, gait normal, speech normal, coordination normal, no pronator drift noted, no fasciculations noted and GCS normal Psychiatry: Mental Status Exam documented within this Exam's Psych section mental status grossly normal, oriented x3, thought process normal, cooperative, affect normal, psychomotor activity normal and memory normal Skin: skin color normal, no rash, no lesions, no ecchymosis noted, no wounds, no lacerations, skin turgor normal, no jaundice, no petechiae, no mottling, nails abnormality noted and no alopecia Progress Note: Objective Labs Labs: CBC WBC 13.6 K/uL (3.7-9.6) H 08/02/24 05:15 RBC 4.5 M/uL (4.40-5.80) 08/02/24 05:15 Hgb 13.0 gm/dL (14.0-17.4) L 08/02/24 05:15 Hct 39.9 % (41.3-50.1) L 08/02/24 05:15 MCV 88.4 fl (81.9-96.5) 08/02/24 05:15 MCH 28.8 pg (27.6-33.7) 08/02/24 05:15 MCHC 32.5 g/dl (33.0-35.7) L 08/02/24 05:15 RDW 13.3 % (11.0-14.8) 08/02/24 05:15 Plt Count 384 K/uL (142-355) H 08/02/24 05:15 MPV 7.9 fl (6.0-10.4) 08/02/24 05:15 Gran % 93.2 % (49.1-73.1) H 08/02/24 05:15 Lymph % (Auto) 4.5 % (17.6-39.05) L 08/02/24 05:15 Leon % (Auto) 2.2 % (4.5-10.7) L 08/02/24 05:15 Eos % (Auto) 0.0 % (0.0-4.0) 08/02/24 05:15 Baso % (Auto) 0.1 (0.0-1.3) 08/02/24 05:15 Lymph # (Auto) 0.6 (0.8-2.9) L 08/02/24 05:15 Leon # (Auto) 0.3 (0.2-0.8) 08/02/24 05:15 Eos # (Auto) 0.0 (0.0-0.3) 08/02/24 05:15 Baso # (Auto) 0.0 (0.0-0.1) 08/02/24 05:15 Absolute Gran (auto) 12.7 (2.0-6.2) H 08/02/24 05:15 BMP Sodium 141 mmol/L (136-145) 08/02/24 05:15 Potassium 4.4 mmol/L (3.6-5.2) 08/02/24 05:15 Chloride 104.0 mmol/L (98-107) 08/02/24 05:15 Carbon Dioxide 30 mmol/L (21-32) 08/02/24 05:15 Anion Gap 7.0 mEq/L (4-14) 08/02/24 05:15 BUN 24 mg/dL (7-18) H 08/02/24 05:15 Creatinine 1.0 mg/dL (0.6-1.3) 08/02/24 05:15 Estimated GFR 87.2 (>59.9) 08/02/24 05:15 Glucose 161 mg/dL (70-110) H 08/02/24 05:15 Calcium 8.7 mg/dL (8.5-10.1) 08/02/24 05:15 Phosphorus 3.5 mg/dL (2.5-4.9) 08/02/24 05:15 Magnesium 2.0 mg/dL (1.8-2.4) 08/02/24 05:15 Total Bilirubin 0.37 mg/dL (0.0-1.0) 08/02/24 05:15 AST 30 U/L (15-37) 08/02/24 05:15 ALT 55 U/L (30-65) 08/02/24 05:15 Alkaline Phosphatase 87 U/L (50-136) 08/02/24 05:15 Total Protein 6.3 g/dL (6.4-8.2) L 08/02/24 05:15 Albumin 2.7 g/dL (3.4-5.0) L 08/02/24 05:15 Liver Function Total Bilirubin 0.37 mg/dL (0.0-1.0) 08/02/24 05:15 AST 30 U/L (15-37) 08/02/24 05:15 ALT 55 U/L (30-65) 08/02/24 05:15 Alkaline Phosphatase 87 U/L (50-136) 08/02/24 05:15 Total Protein 6.3 g/dL (6.4-8.2) L 08/02/24 05:15 Albumin 2.7 g/dL (3.4-5.0) L 08/02/24 05:15 Pulse Oximetry Attestation: I have reviewed the pertinent pulse oximetry results. ECG Attestation: I have reviewed the pertinent ECG results. Imaging Chest x-ray: Attestation: I have reviewed the pertinent imaging results. Radiologist's impression: XR CHEST 2V HISTORY: pneumoniapneumonia; COMPARISON: 07/30/2024. TECHNIQUE: Frontal and lateral chest FINDINGS: Heart size is normal. Pulmonary blood flow is normal. There is a pulmonary in filtrate best seen on the lateral view and probably localizing to the right lower lobe. IMPRESSION: Worsening right lower lobe pneumonia. Progress Note: A&P Assessment and Plan (1) Pneumonia of both lungs: Assessment and Plan: right lower lobe worseninhg Qualifiers: Pneumonia type: due to unspecified organism Lung location: unspecified part of lung Qualified Code(s): J18.9 - Pneumonia, unspecified organism (2) Asthma: Qualifiers: Asthma severity: moderate Asthma persistence: unspecified Asthma complication type: with acute exacerbation Qualified Code(s): J45.901 - Unspecified asthma with (acute) exacerbation (3) Respiratory acidosis: (4) Dehydrated hereditary stomatocytosis: (5) Hypokalemia: (6) Hypoalbuminemia: (7) GERD (gastroesophageal reflux disease): Qualifiers: Esophagitis presence: without esophagitis Qualified Code(s): K21.9 - Gastro-esophageal reflux disease without esophagitis Plan Unable to ween O2. Patient on 1 Liter O2 - Sating at 88-90% Continue to monitor and treat. took oxygen down to 1 in the room and sats stayed 93% will continue to work on the wean today oxygen qualifier in the am increase activity nurse and respiratory to ambulate the patient today add vancomycin 1.5 gm tid with checking levels per protocol as WBC stay elevated and chest xray shows worsening or right lower lobe continue Rocephin and Zithromax and solumedrol at this time Fall Risk Details Cage Fall Scale Risk Level: Low Fall Risk Current Medications: Current Medications Albuterol Sulfate (Ipratropium/Albuterol Sulfate 3 Ml Ampul.Neb) 3 ml INH RQ4 [facility] Last Admin: 08/02/24 11:35 Dose: 3 ml Bisacodyl (Bisacodyl 10 Mg Supp.Rect) 10 mg IN DAILY PRN PRN Reason: Constipation Budesonide (Budesonide 0.5 Mg/2 Ml Ampul.Neb) 1 mg INH RBID [facility] Last Admin: 08/02/24 07:37 Dose: 1 mg Carvedilol (Carvedilol 3.125 Mg Tablet) 3.125 mg PO Q12H [facility] Last Admin: 08/02/24 11:33 Dose: 3.125 mg Enoxaparin Sodium (Enoxaparin Sodium 40 Mg/0.4 Ml Syringe) 40 mg SUBQ DAILY [facility] Last Admin: 08/02/24 08:28 Dose: 40 mg Furosemide (Furosemide 20 Mg/2 Ml Vial) 20 mg IV ONCE ONE Stop: 08/02/24 11:45 Gabapentin (Gabapentin 300 Mg Capsule) 300 mg PO BEDTIME [facility] Last Admin: 08/01/24 20:12 Dose: 300 mg Acetaminophen (Acetaminophen 1000 Mg/100 Ml) 1,000 mg in 100 mls @ 400 mls/hr IV Q6H PRN PRN Reason: Pain Ceftriaxone Sodium 1 gm/ (Sodium Chloride) 50 mls @ 100 mls/hr IV Q12H [facility] Last Infusion: 08/02/24 04:02 Dose: Infused Albumin Human (Albumin Human 25%) 100 mls @ 60 mls/hr IV ONCE [facility] Last Infusion: 08/01/24 16:13 Dose: Infused Vancomycin HCl 1.5 mg/ Sodium (Chloride) 500 mls @ 350 mls/hr IV Q8H [facility] Ketorolac Tromethamine (Ketorolac 30 Mg/Ml Inj Vial) 15 mg IVP Q6H PRN PRN Reason: Moderate Pain SCALE 5-7 Stop: 08/02/24 17:52 Methylprednisolone Sodium Succinate (Methylprednisolone Sod Succ/Pf 40 Mg/Ml Vial) 80 mg INJ Q8H [facility] Last Admin: 08/02/24 08:28 Dose: 80 mg Morphine Sulfate (Morphine Sulfate 4 Mg/Ml Cartridge) 4 mg IV Q4H PRN PRN Reason: Severe Pain SCALE 8-10 Ondansetron HCl (Ondansetron Hcl/Pf 4 Mg/2 Ml Vial) 4 mg INJ Q6H PRN PRN Reason: Nausea And Vomiting Pantoprazole Sodium (Pantoprazole Sodium 40 Mg Tablet.Dr) 40 mg PO BID [facility] Last Admin: 08/02/24 08:28 Dose: 40 mg Time Spent With Patient Time: Total time spent is greater than 50% in coordination of care (as documented) at patient's floor/unit and/or counseling patient: Time with patient: 25 - 35 minutes
[2024-08-02] MEDS: FUROSEMIDE 20 MG/2 ML VIAL IV ONE (11:57)
[2024-08-02] MEDS: ALBUMIN HUMAN 25% 100 ML IV SCH (11:57)
[2024-08-02] MEDS: VANCOMYCIN HCL IV SCH (12:21)
[2024-08-02] MEDS: SODIUM CHLORIDE 0.9% IV SCH (12:21)
[2024-08-02] MEDS: VANCOMYCIN HCL 1,000 MG in 0.9 % SODIUM CHLORIDE 250 ML IV SCH (14:05)
[2024-08-02 17:32] LABS: PCO2 ABG 39 mmHg (35-45); PO2 ABG 65 mmHg (60-100); pH ABG 7.44 (7.35-7.45)
[2024-08-02 17:33] LABS: Base Excess ABG 2.2 mmo1/L (-2-2); Oxygen Saturation ABG 93 % (92-100)
[2024-08-03 05:17] LABS: Basophils%(Percent) Auto 0.1 (0.0-1.3); Granulocytes % - Auto 93.7 % (49.1-73.1); Hematocrit 38.5 % (41.3-50.1); Monocytes #(Absolute)- Auto 0.3 (0.2-0.8); Monocytes %(Percent)- Auto 2.2 % (4.5-10.7); Platelet Count 349 K/uL (142-355); White Blood Count 13.8 K/uL (3.7-9.6)
[2024-08-03 05:31] LABS: Potassium 4.3 mmol/L (3.6-5.2)
--- NOTE | 2024-08-03 10:51 | Progress Note ---
Progress Note: Subjective Subjective Interval history: Patient requiring O2 at 1 liter to keep sats above 92%. Mr. Bradshaw states he is feeling "better" this morning, however, scattered wheezing is still prevalent throughout, and diminished breath sounds in lower lobes bilaterally. Chest X-Ray performed this morning shows improvement. Patient will benefit from continued inpatient treatment. Exam Exam: Patient in pearson's position upon entering room for exam. Family at bedside. Constitutional: abnormal general appearance (chronically ill), distress noted (mild) and (respiratory), average body habitus, limitations noted (physical limitations) and alert Vital Signs - 24 hr 08/02/24 11:33 08/02/24 11:35 08/02/24 12:00 Temperature 97.7 F Pulse Rate 70 Pulse Rate [Bilate ral] 80 Respiratory Rate 16 Blood Pressure Blood Pressure [Ri ght Radial Artery] 132/69 Pulse Oximetry 91 L 93 L Oxygen Delivery Me thod Nasal Cannula Oxygen Flow Rate 1 Fraction of Inspir ed Oxygen 08/02/24 12:51 08/02/24 15:11 08/02/24 16:00 Temperature 97.8 F Pulse Rate Pulse Rate [Bilate ral] 70 Respiratory Rate 16 Blood Pressure 132/69 Blood Pressure [Ri ght Radial Artery] 138/78 Pulse Oximetry 93 L 93 L Oxygen Delivery Me thod Nasal Cannula Oxygen Flow Rate 1 Fraction of Inspir ed Oxygen 08/02/24 20:00 08/02/24 20:49 08/02/24 20:49 Temperature 98.4 F Pulse Rate Pulse Rate [Bilate ral] 83 Respiratory Rate 19 Blood Pressure Blood Pressure [Ri ght Radial Artery] 132/72 Pulse Oximetry 91 L 94 L 92 L Oxygen Delivery Me thod Nasal Cannula Nasal Cannula Oxygen Flow Rate 1 Fraction of Inspir ed Oxygen 08/02/24 23:09 08/02/24 23:31 08/03/24 04:00 Temperature 98.5 F 98.5 F Pulse Rate 64 Pulse Rate [Bilate ral] 72 64 Respiratory Rate 21 22 Blood Pressure Blood Pressure [Ri ght Radial Artery] 101/56 142/76 Pulse Oximetry 94 L 91 L Oxygen Delivery Me thod Room Air Nasal Cannula Oxygen Flow Rate Fraction of Inspir ed Oxygen 08/03/24 07:32 08/03/24 08:19 08/03/24 08:19 Temperature 98 F Pulse Rate Pulse Rate [Bilate ral] 67 Respiratory Rate 20 Blood Pressure Blood Pressure [Ri ght Radial Artery] 143/75 Pulse Oximetry 93 L 95 95 Oxygen Delivery Me thod Nasal Cannula Nasal Cannula Oxygen Flow Rate 1 1 Fraction of Inspir ed Oxygen 26 HENMT: normocephalic, head/scalp atraumatic, hearing grossly normal bilaterally, external ears normal, EACs normal, TMs abnormal, nasal mucous membranes normal, external nose normal, oral mucous membranes normal, oropharynx normal, dentition abnormal and gingiva normal Eyes: PERRL, EOMs intact bilaterally, conjunctivae normal, no scleral icterus, papilledema noted, normal visual alfredo by confrontation, alignment normal, periorbital findings normal, visual acuity normal and no nystagmus Neck/C-Spine: visual inspection normal, trachea midline, cervical spine nontender, cervical full ROM noted, supple, no meningeal signs and thyroid normal Lymph: no lymphadenopathy noted and no lymphedema noted Chest: inspection of chest normal, palpation of chest normal, inspection of breasts normal and palpation of breast(s) abnormal Respiratory: breath sounds equal bilaterally, normal respiratory effort, auscultation abnormal (diminished breath sound) (Diminished in lower lobes), wheezing noted (rhonchi through out today) (scattered wheezes) (Rt > Lt), no rales, no retractions and no use of accessory muscles Cardiovascular: normal heart rate noted, regular rhythm noted, no gallop, no rub, no murmur, no JVD, no clicks, peripheral pulses 2+ throughout, no bruits noted and no additional abnormal heart sounds Gastrointestinal: abdomen normal to inspection, abdomen soft to palpation, nontender to palpation, nontender to percussion, nondistended, normoactive bowel sounds, hepatosplenomegaly noted, no masses, no pulsatile mass, no ascites and no hernia Genitourinary: no CVA tenderness and bladder normal to palpation Back/Pelvis: spine normal to inspection, no thoracic spine tenderness, no lumbar spine tenderness, thoracic spine ROM normal, lumbar spine ROM normal and no paraspinal muscle tenderness noted Extremities: normal to inspection, normal to palpation, no tenderness, full ROM, no joint enlargement and no deformity Neurology: building cleaner II-XII intact, no movement abnormality noted, no focal motor deficit noted, no sensory deficits noted, gait normal, speech normal, coordination normal, no pronator drift noted, no fasciculations noted and GCS normal Psychiatry: Mental Status Exam documented within this Exam's Psych section mental status grossly normal, oriented x3, thought process normal, cooperative, affect normal, psychomotor activity normal and memory normal Skin: skin color normal, no rash, no lesions, no ecchymosis noted, no wounds, no lacerations, skin turgor normal, no jaundice, no petechiae, no mottling, nails abnormality noted and no alopecia Progress Note: Objective Labs Labs: CBC WBC 13.8 K/uL (3.7-9.6) H 08/03/24 05:00 RBC 4.4 M/uL (4.40-5.80) 08/03/24 05:00 Hgb 13.1 gm/dL (14.0-17.4) L 08/03/24 05:00 Hct 38.5 % (41.3-50.1) L 08/03/24 05:00 MCV 87.0 fl (81.9-96.5) 08/03/24 05:00 MCH 29.5 pg (27.6-33.7) 08/03/24 05:00 MCHC 33.9 g/dl (33.0-35.7) 08/03/24 05:00 RDW 13.8 % (11.0-14.8) 08/03/24 05:00 Plt Count 349 K/uL (142-355) 08/03/24 05:00 MPV 7.6 fl (6.0-10.4) 08/03/24 05:00 Gran % 93.7 % (49.1-73.1) H 08/03/24 05:00 Lymph % (Auto) 4.0 % (17.6-39.05) L 08/03/24 05:00 Cannon % (Auto) 2.2 % (4.5-10.7) L 08/03/24 05:00 Eos % (Auto) 0.0 % (0.0-4.0) 08/03/24 05:00 Baso % (Auto) 0.1 (0.0-1.3) 08/03/24 05:00 Lymph # (Auto) 0.6 (0.8-2.9) L 08/03/24 05:00 Cannon # (Auto) 0.3 (0.2-0.8) 08/03/24 05:00 Eos # (Auto) 0.0 (0.0-0.3) 08/03/24 05:00 Baso # (Auto) 0.0 (0.0-0.1) 08/03/24 05:00 Absolute Gran (auto) 13.0 (2.0-6.2) H 08/03/24 05:00 BMP Sodium 143 mmol/L (136-145) 08/03/24 05:00 Potassium 4.3 mmol/L (3.6-5.2) 08/03/24 05:00 Chloride 105.0 mmol/L (98-107) 08/03/24 05:00 Carbon Dioxide 29 mmol/L (21-32) 08/03/24 05:00 Anion Gap 9.0 mEq/L (4-14) 08/03/24 05:00 BUN 24 mg/dL (7-18) H 08/03/24 05:00 Creatinine 1.0 mg/dL (0.6-1.3) 08/03/24 05:00 Estimated GFR 87.2 (>59.9) 08/03/24 05:00 Glucose 164 mg/dL (70-110) H 08/03/24 05:00 Calcium 8.6 mg/dL (8.5-10.1) 08/03/24 05:00 Phosphorus 2.9 mg/dL (2.5-4.9) 08/03/24 05:00 Magnesium 2.0 mg/dL (1.8-2.4) 08/03/24 05:00 Total Bilirubin 0.38 mg/dL (0.0-1.0) 08/03/24 05:00 AST 23 U/L (15-37) 08/03/24 05:00 ALT 58 U/L (30-65) 08/03/24 05:00 Alkaline Phosphatase 78 U/L (50-136) 08/03/24 05:00 Total Protein 6.1 g/dL (6.4-8.2) L 08/03/24 05:00 Albumin 2.8 g/dL (3.4-5.0) L 08/03/24 05:00 Liver Function Total Bilirubin 0.38 mg/dL (0.0-1.0) 08/03/24 05:00 AST 23 U/L (15-37) 08/03/24 05:00 ALT 58 U/L (30-65) 08/03/24 05:00 Alkaline Phosphatase 78 U/L (50-136) 08/03/24 05:00 Total Protein 6.1 g/dL (6.4-8.2) L 08/03/24 05:00 Albumin 2.8 g/dL (3.4-5.0) L 08/03/24 05:00 Progress Note: A&P Assessment and Plan (1) Pneumonia of both lungs: Qualifiers: Pneumonia type: due to unspecified organism Lung location: unspecified part of lung Qualified Code(s): J18.9 - Pneumonia, unspecified organism (2) Asthma: Qualifiers: Asthma severity: moderate Asthma persistence: unspecified Asthma complication type: with acute exacerbation Qualified Code(s): J45.901 - Unspecified asthma with (acute) exacerbation (3) Respiratory acidosis: (4) Dehydrated hereditary stomatocytosis: (5) Hypokalemia: (6) Hypoalbuminemia: (7) GERD (gastroesophageal reflux disease): Qualifiers: Esophagitis presence: without esophagitis Qualified Code(s): K21.9 - Gastro-esophageal reflux disease without esophagitis Plan Unable to ween O2. will continue to work on the weaning Patient on 1 Liter O2 - Sating at 88-94% Continue to monitor and treat. continue current respiratory care encourage ambulation and movement of patient in the room and a portable oxygen tank and allow patient to roam the halls Fall Risk Details Cage Fall Scale Risk Level: Low Fall Risk Current Medications: Current Medications Albuterol Sulfate (Ipratropium/Albuterol Sulfate 3 Ml Ampul.Neb) 3 ml INH RQ4 [facility] Last Admin: 08/03/24 08:19 Dose: 3 ml Bisacodyl (Bisacodyl 10 Mg Supp.Rect) 10 mg OH DAILY PRN PRN Reason: Constipation Budesonide (Budesonide 0.5 Mg/2 Ml Ampul.Neb) 1 mg INH RBID [facility] Last Admin: 08/03/24 08:19 Dose: 1 mg Carvedilol (Carvedilol 3.125 Mg Tablet) 3.125 mg PO Q12H [facility] Last Admin: 01/05/25 23:09 Dose: 3.125 mg Enoxaparin Sodium (Enoxaparin Sodium 40 Mg/0.4 Ml Syringe) 40 mg SUBQ DAILY [facility] Last Admin: 08/03/24 08:17 Dose: 40 mg Gabapentin (Gabapentin 300 Mg Capsule) 300 mg PO BEDTIME [facility] Last Admin: 08/02/24 20:43 Dose: 300 mg Acetaminophen (Acetaminophen 1000 Mg/100 Ml) 1,000 mg in 100 mls @ 400 mls/hr IV Q6H PRN PRN Reason: Pain Ceftriaxone Sodium 1 gm/ (Sodium Chloride) 50 mls @ 100 mls/hr IV Q12H [facility] Stop: 08/04/24 14:59 Last Infusion: 08/03/24 04:23 Dose: Infused Vancomycin HCl 1,000 mg/ (Sodium Chloride) 250 mls @ 250 mls/hr IV Q12H [facility] Last Infusion: 08/03/24 04:23 Dose: Infused Methylprednisolone Sodium Succinate (Methylprednisolone Sod Succ/Pf 40 Mg/Ml Vial) 80 mg INJ Q8H [facility] Last Admin: 08/03/24 08:17 Dose: 80 mg Morphine Sulfate (Morphine Sulfate 4 Mg/Ml Cartridge) 4 mg IV Q4H PRN PRN Reason: Severe Pain SCALE 8-10 Ondansetron HCl (Ondansetron Hcl/Pf 4 Mg/2 Ml Vial) 4 mg INJ Q6H PRN PRN Reason: Nausea And Vomiting Pantoprazole Sodium (Pantoprazole Sodium 40 Mg Tablet.Dr) 40 mg PO BID [facility] Last Admin: 08/03/24 08:17 Dose: 40 mg Time Spent With Patient Time: Total time spent is greater than 50% in coordination of care (as documented) at patient's floor/unit and/or counseling patient:
[2024-08-04 04:57] LABS: Basophils%(Percent) Auto 0.1 (0.0-1.3); Granulocytes % - Auto 92.8 % (49.1-73.1); Granulocytes#(Absolute)- Auto 10.6 (2.0-6.2); Hematocrit 40.5 % (41.3-50.1); Mean Corpuscular Volume 88.5 fl (81.9-96.5); Monocytes #(Absolute)- Auto 0.3 (0.2-0.8); Monocytes %(Percent)- Auto 2.8 % (4.5-10.7); Platelet Count 300 K/uL (142-355); White Blood Count 11.4 K/uL (3.7-9.6)
[2024-08-04 05:07] LABS: Potassium 4.3 mmol/L (3.6-5.2)
[2024-08-04 06:37] LABS: Total Cells Counted 100
[2024-08-04 06:38] LABS: RBC Morphology Normal (Normal)
[2024-08-04] MEDS: DOXYCYCLINE HYCLATE 100 MG in 0.9 % SODIUM CHLORIDE MB+ 100 ML IV SCH (11:03)
[2024-08-04] MEDS ORDERED: ALBUMIN HUMAN 25% 100 ML IV SCH (11:15)
[2024-08-04] MEDS: ALBUMIN HUMAN 25% 100 ML IV ONE (11:39)
--- NOTE | 2024-08-04 16:40 | Progress Note ---
Progress Note: Subjective Subjective Interval history: Patient has improvement with breathing, breath sounds, and O2 requirements. Pharmacy recommends one more day of IV antibiotics, labs and Chest X-Rays are showing improvement. Exam Exam: Patient sitting in recliner upon entering room at time of exam. Constitutional: abnormal general appearance (chronically ill), no apparent distress, average body habitus, limitations noted (physical limitations) and alert Vital Signs - 24 hr 08/03/24 19:50 08/03/24 20:59 08/03/24 20:59 Temperature 97.8 F Pulse Rate [Bilate ral] 72 Respiratory Rate 22 Blood Pressure [Ri ght Radial Artery] 123/70 Pulse Oximetry 93 L 92 L 92 L Oxygen Delivery Me thod Nasal Cannula Nasal Cannula Oxygen Flow Rate 1 Fraction of Inspir ed Oxygen 26 08/03/24 23:20 08/04/24 03:41 08/04/24 07:48 Temperature 98.4 F 98.7 F 97.7 F Pulse Rate [Bilate ral] 72 70 66 Respiratory Rate 19 18 20 Blood Pressure [Ri ght Radial Artery] 125/73 117/72 129/60 Pulse Oximetry 93 L 92 L 93 L Oxygen Delivery Me thod Nasal Cannula Nasal Cannula Nasal Cannula Oxygen Flow Rate 1 Fraction of Inspir ed Oxygen 08/04/24 08:27 08/04/24 08:27 08/04/24 11:14 Temperature Pulse Rate [Bilate ral] Respiratory Rate Blood Pressure [Ri ght Radial Artery] Pulse Oximetry 92 L 92 L 93 L Oxygen Delivery Me thod Nasal Cannula Oxygen Flow Rate 1 Fraction of Inspir ed Oxygen 24 08/04/24 11:50 08/04/24 15:49 08/04/24 16:00 Temperature 97.6 F 97.6 F Pulse Rate [Bilate ral] 76 73 Respiratory Rate 20 20 Blood Pressure [Ri ght Radial Artery] 115/67 137/77 Pulse Oximetry 93 L 95 93 L Oxygen Delivery Me thod Room Air Room Air Oxygen Flow Rate Fraction of Inspir ed Oxygen HENMT: normocephalic, head/scalp atraumatic, hearing grossly normal bilaterally, external ears normal, EACs normal, TMs abnormal, nasal mucous membranes normal, external nose normal, oral mucous membranes normal, oropharynx normal, dentition abnormal and gingiva normal Eyes: PERRL, EOMs intact bilaterally, conjunctivae normal, no scleral icterus, papilledema noted, normal visual alfredo by confrontation, alignment normal, periorbital findings normal, visual acuity normal and no nystagmus Neck/C-Spine: visual inspection normal, trachea midline, cervical spine nontender, cervical full ROM noted, supple, no meningeal signs and thyroid normal Lymph: no lymphadenopathy noted and no lymphedema noted Chest: inspection of chest normal, palpation of chest normal, inspection of breasts normal and palpation of breast(s) abnormal Respiratory: breath sounds equal bilaterally, normal respiratory effort, clear to auscultation bilaterally, no wheezes, no rales, no retractions and no use of accessory muscles Cardiovascular: normal heart rate noted, regular rhythm noted, no gallop, no rub, no murmur, no JVD, no clicks, peripheral pulses 2+ throughout, no bruits noted and no additional abnormal heart sounds Gastrointestinal: abdomen normal to inspection, abdomen soft to palpation, nontender to palpation, nontender to percussion, nondistended, normoactive bowel sounds, hepatosplenomegaly noted, no masses, no pulsatile mass, no ascites, no hernia and normal rectal exam Genitourinary: no CVA tenderness, bladder normal to palpation and external appearance normal Back/Pelvis: spine normal to inspection, no thoracic spine tenderness, no lumbar spine tenderness, thoracic spine ROM normal, lumbar spine ROM normal and no paraspinal muscle tenderness noted Extremities: normal to inspection, normal to palpation, no tenderness, full ROM, no joint enlargement and no deformity 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, no movement abnormality noted, no focal motor deficit noted, no sensory deficits noted, gait normal, speech normal, coordination normal, no pronator drift noted, no fasciculations noted and GCS n ormal Psychiatry: Mental Status Exam documented within this Exam's Psych section mental status grossly normal, oriented x3, thought process normal, cooperative, affect normal, psychomotor activity normal and memory normal Skin: skin color normal, no rash, no lesions, no ecchymosis noted, no wounds, no lacerations, skin turgor normal, no jaundice, no petechiae, no mottling, nails abnormality noted and no alopecia Progress Note: Objective Labs Labs: CBC WBC 11.4 K/uL (3.7-9.6) H 08/04/24 04:00 RBC 4.6 M/uL (4.40-5.80) 08/04/24 04:00 Hgb 13.3 gm/dL (14.0-17.4) L 08/04/24 04:00 Hct 40.5 % (41.3-50.1) L 08/04/24 04:00 MCV 88.5 fl (81.9-96.5) 08/04/24 04:00 MCH 29.0 pg (27.6-33.7) 08/04/24 04:00 MCHC 32.8 g/dl (33.0-35.7) L 08/04/24 04:00 RDW 13.8 % (11.0-14.8) 08/04/24 04:00 Plt Count 300 K/uL (142-355) 08/04/24 04:00 MPV 7.5 fl (6.0-10.4) 08/04/24 04:00 Gran % 92.8 % (49.1-73.1) H 08/04/24 04:00 Lymph % (Auto) 4.3 % (17.6-39.05) L 08/04/24 04:00 [place] % (Auto) 2.8 % (4.5-10.7) L 08/04/24 04:00 Eos % (Auto) 0.0 % (0.0-4.0) 08/04/24 04:00 Baso % (Auto) 0.1 (0.0-1.3) 08/04/24 04:00 Lymph # (Auto) 0.5 (0.8-2.9) L 08/04/24 04:00 [place] # (Auto) 0.3 (0.2-0.8) 08/04/24 04:00 Eos # (Auto) 0.0 (0.0-0.3) 08/04/24 04:00 Baso # (Auto) 0.0 (0.0-0.1) 08/04/24 04:00 Absolute Gran (auto) 10.6 (2.0-6.2) H 08/04/24 04:00 BMP Sodium 141 mmol/L (136-145) 08/04/24 04:00 Potassium 4.3 mmol/L (3.6-5.2) 08/04/24 04:00 Chloride 106.0 mmol/L (98-107) 08/04/24 04:00 Carbon Dioxide 28 mmol/L (21-32) 08/04/24 04:00 Anion Gap 7.0 mEq/L (4-14) 08/04/24 04:00 BUN 22 mg/dL (7-18) H 08/04/24 04:00 Creatinine 1.0 mg/dL (0.6-1.3) 08/04/24 04:00 Estimated GFR 87.2 (>59.9) 08/04/24 04:00 Glucose 157 mg/dL (70-110) H 08/04/24 04:00 Calcium 8.0 mg/dL (8.5-10.1) L 08/04/24 04:00 Phosphorus 2.9 mg/dL (2.5-4.9) 08/03/24 05:00 Magnesium 2.0 mg/dL (1.8-2.4) 08/03/24 05:00 Total Bilirubin 0.32 mg/dL (0.0-1.0) 08/04/24 04:00 AST 25 U/L (15-37) 08/04/24 04:00 ALT 61 U/L (30-65) 08/04/24 04:00 Alkaline Phosphatase 78 U/L (50-136) 08/04/24 04:00 Total Protein 5.7 g/dL (6.4-8.2) L 08/04/24 04:00 Albumin 2.6 g/dL (3.4-5.0) L 08/04/24 04:00 Liver Function Total Bilirubin 0.32 mg/dL (0.0-1.0) 08/04/24 04:00 AST 25 U/L (15-37) 08/04/24 04:00 ALT 61 U/L (30-65) 08/04/24 04:00 Alkaline Phosphatase 78 U/L (50-136) 08/04/24 04:00 Total Protein 5.7 g/dL (6.4-8.2) L 08/04/24 04:00 Albumin 2.6 g/dL (3.4-5.0) L 08/04/24 04:00 Imaging Chest x-ray: Radiologist's impression: XR CHEST 2V Date of Service: 08/03/24 HISTORY: pneumonia; COMPARISON: August 01, 2024 FINDINGS: The trachea is midline. The cardiac silhouette is borderline in size. Lung reveals moderate resolution of bibasilar infiltrate and small effusions. The bony thorax is unremarkable. IMPRESSION: Moderate resolution of bibasilar pneumonia. Progress Note: A&P Assessment and Plan (1) Pneumonia of both lungs: Qualifiers: Pneumonia type: due to unspecified organism Lung location: unspecified part of lung Qualified Code(s): J18.9 - Pneumonia, unspecified organism (2) Asthma: Qualifiers: Asthma severity: moderate Asthma persistence: unspecified Asthma complication type: with acute exacerbation Qualified Code(s): J45.901 - Unspecified asthma with (acute) exacerbation (3) Respiratory acidosis: (4) Dehydrated hereditary stomatocytosis: (5) Hypokalemia: (6) Hypoalbuminemia: (7) GERD (gastroesophageal reflux disease): Qualifiers: Esophagitis presence: without esophagitis Qualified Code(s): K21.9 - Gastro-esophageal reflux disease without esophagitis Plan Continue to monitor and treat. continue current respiratory care encourage ambulation and movement of patient in the room and a portable oxygen tank and allow patient to roam the halls Fall Risk Details Cage Fall Scale Risk Level: Low Fall Risk Current Medications: Current Medications Albuterol Sulfate (Ipratropium/Albuterol Sulfate 3 Ml Ampul.Neb) 3 ml INH RQ4 [facility] Last Admin: 08/04/24 15:47 Dose: 3 ml Bisacodyl (Bisacodyl 10 Mg Supp.Rect) 10 mg LA DAILY PRN PRN Reason: Constipation Budesonide (Budesonide 0.5 Mg/2 Ml Ampul.Neb) 1 mg INH RBID [facility] Last Admin: 08/04/24 08:27 Dose: 1 mg Carvedilol (Carvedilol 3.125 Mg Tablet) 3.125 mg PO Q12H [facility] Last Admin: 08/04/24 10:28 Dose: 3.125 mg Enoxaparin Sodium (Enoxaparin Sodium 40 Mg/0.4 Ml Syringe) 40 mg SUBQ DAILY [facility] Last Admin: 08/04/24 09:19 Dose: 40 mg Gabapentin (Gabapentin 300 Mg Capsule) 300 mg PO BEDTIME [facility] Last Admin: 08/03/24 21:40 Dose: 300 mg Acetaminophen (Acetaminophen 1000 Mg/100 Ml) 1,000 mg in 100 mls @ 400 mls/hr IV Q6H PRN PRN Reason: Pain Vancomycin HCl 1,000 mg/ (Sodium Chloride) 250 mls @ 250 mls/hr IV Q12H [facility] Last Infusion: 08/04/24 15:03 Dose: Infused Doxycycline Hyclate 100 mg/ (Sodium Chloride) 100 mls @ 100 mls/hr IV BID [facility] Last Infusion: 08/04/24 12:03 Dose: Infused Ondansetron HCl (Ondansetron Hcl/Pf 4 Mg/2 Ml Vial) 4 mg INJ Q6H PRN PRN Reason: Nausea And Vomiting Pantoprazole Sodium (Pantoprazole Sodium 40 Mg Tablet.Dr) 40 mg PO BID [facility] Last Admin: 08/04/24 09:19 Dose: 40 mg Time Spent With Patient Time: Total time spent is greater than 50% in coordination of care (as documented) at patient's floor/unit and/or counseling patient:
[2024-08-05 06:22] LABS: Basophils%(Percent) Auto 0.2 (0.0-1.3); Eosinophils%(Percent) Auto 0.3 % (0.0-4.0); Granulocytes % - Auto 80.8 % (49.1-73.1); Granulocytes#(Absolute)- Auto 8.4 (2.0-6.2); Mean Corpuscular Volume 88.5 fl (81.9-96.5); Monocytes #(Absolute)- Auto 0.6 (0.2-0.8); Monocytes %(Percent)- Auto 5.5 % (4.5-10.7); Platelet Count 277 K/uL (142-355); White Blood Count 10.4 K/uL (3.7-9.6)
[2024-08-05 06:30] LABS: Potassium 3.6 mmol/L (3.6-5.2)
[2024-08-05 08:26] VITALS: RESP 18; TEMP 97.6
[2024-08-05 12:19] VITALS: BP 138/78
[2024-08-05] MEDS ORDERED: POTASSIUM PHOSPHATE 500 MG TABLET.SOL PO ONE (15:04)
[2024-08-05] MEDS: POTASSIUM PHOSPHATE 500 MG TABLET.SOL PO ONE (15:05)
[2024-08-05 15:47] VITALS: PULSE 79
--- NOTE | 2024-09-09 16:22 | Discharge Summary ---
DS: Providers Provider Date of admission: 07/28/24 18:07 Primary care physician: Danika Hanks DO Admitting clinician: Sung Bishop Attending physician on admission: Danika Hanks Consults: 07/30/24 09:38 Consult to Physical Therapy Routine Comment: Consulting Provider: Reason for consultation: pneumonia Physician Instructions: chest physiotherapy, evaluate and treat Attending physician on discharge: Danika Hanks Discharging clinician: Danika Hanks Anticipated date of discharge: 08/05/24 DS: Diagnosis Discharge Diagnosis (1) Pneumonia of both lungs: Qualifiers: Lung location: unspecified part of lung Pneumonia type: due to unspecified organism Qualified Code(s): J18.9 - Pneumonia, unspecified organism (2) Asthma: Qualifiers: Asthma complication type: with acute exacerbation Asthma persistence: unspecified Asthma severity: moderate Qualified Code(s): J45.901 - Unspecified asthma with (acute) exacerbation (3) Respiratory acidosis: (4) Dehydrated hereditary stomatocytosis: (5) Hypokalemia: (6) Hypoalbuminemia: (7) GERD (gastroesophageal reflux disease): Qualifiers: Esophagitis presence: without esophagitis Qualified Code(s): K21.9 - Gastro-esophageal reflux disease without esophagitis Plan Discharge patient home for self care. DS: Summary Hospital Course Hospital Course: 58-year-old male presents to ER with complaint of generalized body aches, fever, cough, shortness of breath, and fatigue x 2 days. Admitted patient to med/surg for observation and treatment. Day 1 of hospital stay, patient is being tapered off O2, when oxygen is lowered his sats drop to 90-92%. He is currently on 2 liters of oxygen to maintain O2 saturation levels. WBC increased to 16.8, glucose of 197, BNP of 148.0, Albumin of 2.7, and TSH of 0.27. Breath sounds have improved and patient states he is feeling better today. Day 2 of hospital stay, patient continues be attempted to taper of O2. O2 Qualifier performed by Respiratory Therapy, as soon as patient stood to walk his HR elevated to 120 and O2 SAT went to 84% while on room air. O2 was reapplied at 1 Liter. Day 3 of hospital stay, patient is being tapered off O2 without success. Sats down to low to mid 80's without oxygen and no fevers or tachycardia recorded over night and patient states he is feeling better today as he states everyday and is smiling at the time of the exam. Day 4 of hospital stay, patient is being tapered off O2, without much success patient only down to 2 over night from 3 liters. patient continues to state as he does daily that he feels better and he is sitting up in the recliner today and finally out of the bed. remained afebrile and no tachycardia. Day 5 of hospital stay, patient requiring O2 at 1 liter to keep sats above 92%. Mr. Bradshaw states he is feeling "better" this morning, however, scattered wheezing is still prevalent throughout, and diminished breath sounds in lower lobes bilaterally. Chest X-Ray performed this morning shows improvement. Patient will benefit from continued inpatient treatment. Day 6 of hospital stay, patient has improvement with breathing, breath sounds, and O2 requirements. Pharmacy recommends one more day of IV antibiotics; labs and chest x-ray are showing improvement. Day 7 of hospital stay, patient is ready do discharge home for self care. Patient is to follow up with PCP in 7 days of discharge. Provided education on continuing education and utilizing lung strengthening devices while at home. Status at Discharge Functional status at discharge: independent ambulation Overall status at discharge: patient is back to baseline Time Spent with Patient Time attestation: Total time spent providing and/or coordinating discharge services: Exam Exam: Patient sitting in recliner upon entering room at time of exam. Constitutional: abnormal general appearance (chronically ill), no apparent distress, abnormal body habitus (overweight), limitations noted (physical limitations) and alert Vital Signs - 24 hr 08/02/24 11:33 08/02/24 11:35 08/02/24 12:00 Temperature 97.7 F Pulse Rate 70 Pulse Rate [Bilate ral] 80 Respiratory Rate 16 Blood Pressure Blood Pressure [Ri ght Radial Artery] 132/69 Pulse Oximetry 91 L 93 L Oxygen Delivery Me thod Nasal Cannula Oxygen Flow Rate 1 Fraction of Inspir ed Oxygen 08/02/24 12:51 08/02/24 15:11 08/02/24 16:00 Temperature 97.8 F Pulse Rate Pulse Rate [Bilate ral] 70 Respiratory Rate 16 Blood Pressure 132/69 Blood Pressure [Ri ght Radial Artery] 138/78 Pulse Oximetry 93 L 93 L Oxygen Delivery Me thod Nasal Cannula Oxygen Flow Rate 1 Fraction of Inspir ed Oxygen 08/02/24 20:00 08/02/24 20:49 08/02/24 20:49 Temperature 98.4 F Pulse Rate Pulse Rate [Bilate ral] 83 Respiratory Rate 19 Blood Pressure Blood Pressure [Ri ght Radial Artery] 132/72 Pulse Oximetry 91 L 94 L 92 L Oxygen Delivery Me thod Nasal Cannula Nasal Cannula Oxygen Flow Rate 1 Fraction of Inspir ed Oxygen 08/02/24 23:09 08/02/24 23:31 08/03/24 04:00 Temperature 98.5 F 98.5 F Pulse Rate 64 Pulse Rate [Bilate ral] 72 64 Respiratory Rate 21 22 Blood Pressure Blood Pressure [Ri ght Radial Artery] 101/56 142/76 Pulse Oximetry 94 L 91 L Oxygen Delivery Me thod Room Air Nasal Cannula Oxygen Flow Rate Fraction of Inspir ed Oxygen 08/03/24 07:32 08/03/24 08:19 08/03/24 08:19 Temperature 98 F Pulse Rate Pulse Rate [Bilate ral] 67 Respiratory Rate 20 Blood Pressure Blood Pressure [Ri [facility] Radial Artery] 143/75 Pulse Oximetry 93 L 95 95 Oxygen Delivery Me thod Nasal Cannula Nasal Cannula Oxygen Flow Rate 1 1 Fraction of Inspir ed Oxygen 26 HENMT: normocephalic, head/scalp atraumatic, hearing grossly normal bilaterally, external ears normal, EACs normal, TMs abnormal, nasal mucous membranes normal, external nose normal, oral mucous membranes normal, oropharynx normal, dentition abnormal and gingiva normal Eyes: PERRL, EOMs intact bilaterally, conjunctivae normal, no scleral icterus, papilledema noted, normal visual alfredo by confrontation, alignment normal, periorbital findings normal, visual acuity normal and no nystagmus Neck/C-Spine: visual inspection normal, trachea midline, cervical spine nontender, cervical full ROM noted, supple, no meningeal signs and thyroid normal Lymph: no lymphadenopathy noted and no lymphedema noted Chest: inspection of chest normal, palpation of chest normal, inspection of breasts normal and palpation of breast(s) abnormal Respiratory: breath sounds equal bilaterally, normal respiratory effort, clear to auscultation bilaterally, no wheezes, no rales, no retractions and no use of accessory muscles Cardiovascular: normal heart rate noted, regular rhythm noted, no gallop, no rub, no murmur, no JVD, no clicks, peripheral pulses 2+ throughout, no bruits noted and no additional abnormal heart sounds Gastrointestinal: abdomen normal to inspection, abdomen soft to palpation, nontender to palpation, nontender to percussion, nondistended, normoactive bowel sounds, hepatosplenomegaly noted, no masses, no pulsatile mass, no ascites and no hernia Genitourinary: no CVA tenderness and bladder normal to palpation Back/Pelvis: spine normal to inspection, no thoracic spine tenderness, no lumbar spine tenderness, thoracic spine ROM normal, lumbar spine ROM normal and no paraspinal muscle tenderness noted Extremities: normal to inspection, normal to palpation, no tenderness, full ROM, no joint enlargement and no deformity 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, no movement abnormality noted, no focal motor deficit noted, no sensory deficits noted, gait normal, speech normal, coordination normal, no pronator drift noted, no fasciculations noted and GCS normal Psychiatry: Mental Status Exam documented within this Exam's Psych section mental status grossly normal, oriented x3, thought process normal, cooperative, affect normal, psychomotor activity normal and memory normal Skin: skin color normal, no rash, no lesions, no ecchymosis noted, no wounds, no lacerations, skin turgor normal, no jaundice, no petechiae, no mottling, nails abnormality noted and no alopecia DS: Data Data Completed and Pending Labs on day of discharge: Labs from last 24 hours 08/03/24 08/02/24 08/02/24 05:00 17:08 17:08 WBC 13.8 H RBC 4.4 Hgb 13.1 L Hct 38.5 L MCV 87.0 MCH 29.5 MCHC 33.9 RDW 13.8 Plt Count 349 MPV 7.6 Gran % 93.7 H Lymph % (Auto) 4.0 L [place] % (Auto) 2.2 L Eos % (Auto) 0.0 Baso % (Auto) 0.1 Lymph # (Auto) 0.6 L [place] # (Auto) 0.3 Eos # (Auto) 0.0 Baso # (Auto) 0.0 Absolute Gran (auto) 13.0 H ABG pH 7.44 ABG pCO2 39 ABG pO2 122 65 ABG PO2/FiO2 Ratio 0.53 ABG HCO3 26.5 H ABG Total CO2 27.7 ABG O2 Saturation 93 ABG Base Excess 2.2 H A-a O2 Gradient 57 Respiratory Index 0.9 FiO2 24 Sodium 143 Potassium 4.3 Chloride 105.0 Carbon Dioxide 29 Anion Gap 9.0 BUN 24 H Creatinine 1.0 Estimated GFR 87.2 Glucose 164 H Calcium 8.6 Phosphorus 2.9 Magnesium 2.0 Total Bilirubin 0.38 AST 23 ALT 58 Alkaline Phosphatase 78 Total Protein 6.1 L Albumin 2.8 L Imaging Chest x-ray: Radiologist's impression: XR CHEST 1V Date of Service: 07/28/24 HISTORY: COUGH; CBN COMPARISON: January 27, 2021 FINDINGS: The trachea is midline. The cardiac silhouette is mildly enlarged. Patchy infiltrate is noted at both lower lung zones more on right side without effu umang. The bony thorax is unremarkable. IMPRESSION: Bilateral lower lobe bronchopneumonia. Portable chest Date of Service: 07/30/24 HISTORY: Follow-up pneumonia COMPARISON: 07/28/2024 FINDINGS: Heart is enlarged. No congestive heart failure is noted. Right perihilar, right lower lobe, and left lower lobe infiltrates are present and unchanged and most consistent with pneumonia. Left upper lung field is clear. No pleural effusion or pneumothorax. Bony thorax is unremarkable. IMPRESSION: No significant change from the prior examination. XR CHEST 2V Date of Service: 08/01/24 HISTORY: pneumonia; COMPARISON: 07/30/2024. TECHNIQUE: Frontal and lateral chest FINDINGS: Heart size is normal. Pulmonary blood flow is normal. There is a pulmonary infiltrate best seen on the lateral view and probably localizing to the right lower lobe. IMPRESSION: Worsening right lower lobe pneumonia. XR CHEST 2V Date of Service: 08/03/24 HISTORY: pneumonia; COMPARISON: August 01, 2024 FINDINGS: The trachea is midline. The cardiac silhouette is borderline in size. Lung reveals moderate resolution of bibasilar infiltrate and small effusions. The bony thorax is unremarkable. IMPRESSION: Moderate resolution of bibasilar pneumonia. XR CHEST 2V Date of Service: 08/05/24 HISTORY: pneumonia; COMPARISON: August 03, 2024 FINDINGS: The trachea is midline. The cardiac silhouette is borderline in size. There is continuing improvement of bibasilar infiltrate without effusion. The rest of lungs are clear without focal infiltrate or effusion. The bony thorax is unremarkable. IMPRESSION: Continued improving bibasilar pneumonia. XR CHEST 2V Date of Service: 08/11/24 HISTORY: basal pneumonia BI; COMPARISON: August 05, 2024 FINDINGS: The trachea is midline. The cardiac silhouette is borderline in size. Mild patchy infiltrate is at right lung base. The rest of lungs are clear without focal infiltrate or effusion. The bony thorax is unremarkable. IMPRESSION: Right lung base bronchopneumonia. XR CHEST 2V Date of Service: 08/28/24 HISTORY: right lower zone pneumonia; hx of hospitalization for pneumonia Jul 28- Aug 05; stc/cbn COMPARISON: August 11, 2024 FINDINGS: The trachea is midline. The cardiac silhouette is borderline in size. The lungs are clear without focal infiltrate or effusion. The bony thorax is unremarkable. IMPRESSION: No acute cardiopulmonary disease. Discharge Plan Discharge Disposition: Home, Self-Care Condition: Stable Discharge Medications: New pantoprazole [Protonix] 40 mg tablet,delayed release (DR/EC) 40 mg PO DAILY Qty: 30 0RF doxycycline hyclate 100 mg capsule 100 mg PO BID Qty: 10 0RF Continued carvedilol 3.125 mg tablet 3.125 mg PO Q12H gabapentin 300 mg capsule 300 mg PO BEDTIME loratadine [Allergy Relief (loratadine)] 10 mg tablet 10 mg PO DAILY albuterol sulfate 90 mcg/actuation HFA aerosol inhaler 2 inh inhalation Q4H PRN (Reason: shortness of breath or wheezing) Rx Instructions: Hasn't filled since 04/30/2024 fluticasone furoate-vilanterol [Breo Ellipta] 200-25 mcg/dose blister with device 1 inh inhalation DAILY Rx Instructions: hasn't filled since 04/30/2024 Discharge Orders: Discharge Order (Routine); Ordered 08/05/24 Ordered By: Danika Hanks Activity: as per physical therapy Activity Detail: pulmonary rehab Diet: low fat, low cholesterol Diet Detail: increase water and electrolyte drinks Interventions: Discharge Assessment Last Done: 08/05/24 15:37 MED/SURG & ICU Observation Charge Sheet Last Done: 08/05/24 15:41 Patient Instructions: Asthma (DC), Community Acquired Pneumonia (DC) Activity Restrictions/Additional Instructions: needs respirator at work and no return until released by pcp and rehab in 12 weeks follow up [facility] in 7 days continue to use Breo at home and albuterol rescue and use acapella and incentive spirometer at home practice deep breaths and walking avoid extreme temps allergens and contacts wear mask when out and about and around other people and discussed safety needs for the patient in detail for the environment he is currently working in Forms: Portal/Health Info Access Inst Follow-Ups: Danika Hanks DO [Primary Care Provider] - 08/11/24 10:30 am Discharge Date/Time: 08/05/24 16:23
== END 2024-08-05 16:23 | disposition home or self-care (01) | DRG 194 ==
LOC: ED 13:13 → MS 13:13 → OBSVTOIN 18:07 → MS 18:30
PROVIDERS: ADMIT Family Medicine; ATTEND Family Medicine
DX: E87.6 Hypokalemia; D72.828 Other elevated white blood cell count; R06.02 Shortness of breath; R53.83 Other fatigue; J45.901 Unspecified asthma with (acute) exacerbation; R50.9 Fever, unspecified; E87.29 Other acidosis; J06.9 Acute upper respiratory infection, unspecified; J18.9 Pneumonia, unspecified organism; E88.09 Other disorders of plasma-protein metabolism, not elsewhere classified; R05.9 Cough, unspecified; D58.8 Other specified hereditary hemolytic anemias; K21.9 Gastro-esophageal reflux disease without esophagitis